=== PATIENT | female | born 1935 | race American Indian/Alaskan Native ===

== ENCOUNTER 2018-07-20 10:09 | Inpatient (IN) | payer OTHER ==
[2018-07-20] MEDS ORDERED: NACL 0.9% 1000 ML 1,000 ML IV ONE ×2 (10:23→10:58)
[2018-07-20] MEDS ORDERED: PROTONIX IV ONE (10:26)
--- NOTE | 2018-07-20 11:09 | Emergency Department Report ---
HPI - General Chief Complaint: GI Bleed Time Seen by Provider: 07/20/18 10:22 - HPI HPI: Room 9 The patient is an 82-year-old female presenting with a chief complaint of dizziness and black stool. The patient states she was diagnosed with a DVT in her right lower extremity approximately one week ago. Patient states she was initially started on Lovenox and then switched over to Coumadin. The patient states she took her last Lovenox shot 2 days ago and she took her last dose of Coumadin yesterday. The patient states yesterday intermittent episodes of diaphoresis. Last night she felt as though she was going to pass out. This morning patient states she didn't have diaphoresis and then had to have a bowel movement. Patient states she had black stool and then black emesis. Location: gastrointestinal system Duration: [See above] Quality: [See above] Severity: Moderate Modifying factors: [see above] Context: [see above] Mode of transportation: [not driving] ED Past Medical Hx - Past Medical History Previous Medical History?: Yes Hx Diabetes: Yes (NIDDM) Hx Arthritis: Yes Additional medical history: DVTs. sciatica - Surgical History Past Surgical History?: No - Family History Family history: no significant - Social History Smoking Status: Current Every Day Smoker Substance Use Type: None ED Review of Systems ROS: Stated complaint: GI BLEED Other details as noted in HPI Constitutional: diaphoresis Eyes: denies: eye pain ENT: denies: throat pain Respiratory: no symptoms reported Cardiovascular: denies: chest pain Endocrine: no symptoms reported Gastrointestinal: abdominal pain, nausea, vomiting, hematemesis, melena Genitourinary: denies: dysuria Musculoskeletal: denies: back pain Neurological: denies: headache Physical Exam - Physical Exam Vital Signs: Vital Signs 07/20/18 10:53 Pulse Rate 107 H Respiratory 19 Rate O2 Sat by Pulse 100 Oximetry Physical Exam: GENERAL: The patient is well-developed well-nourished female lying on stretcher appearing to be in moderate discomfort. [] HEENT: Normocephalic. Atraumatic. Extraocular motions are intact. Patient has moist mucous membranes. NECK: Supple. Trachea midline CHEST/LUNGS: Clear to auscultation. There is no respiratory distress noted. HEART/CARDIOVASCULAR: Regular. There is no tachycardia. There is no gallop rub or murmur. ABDOMEN: Abdomen is soft, with diffuse discomfort to palpation. No rebound or guarding. Patient has normal bowel sounds. There is no abdominal distention. SKIN: There is no rash. There is no edema. There is no diaphoresis. NEURO: The patient is awake, alert, and oriented. The patient is cooperative. The patient has normal speech MUSCULOSKELETAL: There is no evidence of acute injury. RECTAL: Melena. Guaiac positive ED Course Vital Signs 07/20/18 10:53 Pulse Rate 107 H Respiratory 19 Rate O2 Sat by Pulse 100 Oximetry - Consultations Consultation #1: 07/20/18 11:04 GI paged 07/20/18 11:16 Case discussed with Nona ED Medical Decision Making - Lab Data Result diagrams: 07/20/18 11:12 07/20/18 11:12 Laboratory Tests 07/20/18 07/20/18 07/20/18 11:09 11:12 11:12 WBC 17.5 H RBC 3.07 L Hgb 9.6 L Hct 29.3 L MCV 95 MCH 31 MCHC 33 RDW 15.3 H Plt Count 172 Lymph % (Auto) 19.4 [place] % (Auto) 4.0 Eos % (Auto) 0.1 Baso % (Auto) 0.5 Lymph # 3.4 [place] # 0.7 Eos # 0.0 Baso # 0.1 Seg Neutrophils % 76.0 H Seg Neutrophils # 13.3 H PT 53.0 H INR 5.38 H* APTT 92.5 H* Sodium Potassium Chloride Carbon Dioxide Anion Gap BUN Creatinine Estimated GFR BUN/Creatinine Ratio Glucose Calcium Total Bilirubin AST ALT Alkaline Phosphatase Total Protein Albumin Albumin/Globulin Ratio Blood Type O POSITIVE Antibody Screen Negative 07/20/18 11:12 WBC RBC Hgb Hct MCV MCH MCHC RDW Plt Count Lymph % (Auto) [place] % (Auto) Eos % (Auto) Baso % (Auto) Lymph # [place] # Eos # Baso # Seg Neutrophils % Seg Neutrophils # PT INR APTT Sodium 146 H Potassium 3.7 Chloride 108.7 H Carbon Dioxide 22 Anion Gap 19 BUN 43 H Creatinine 0.7 Estimated GFR > 60 BUN/Creatinine Ratio 61 Glucose 194 H Calcium 8.6 Total Bilirubin < 0.20 AST 29 ALT 24 Alkaline Phosphatase 61 Total Protein 5.8 L Albumin 2.9 L Albumin/Globulin Ratio 1.0 Blood Type Antibody Screen - Differential Diagnosis upper GI bleed, coagulopathy Critical Care Time: Yes Critical care time in (mins) excluding proc time.: 30 Critical care attestation.: If time is entered above; I have spent that time in minutes in the direct care of this critically ill patient, excluding procedure time. ED Disposition Clinical Impression: GI bleed Disposition: OP ADMIT IP TO THIS HOSP Is pt being admited?: Yes Does the pt Need Aspirin: No Condition: Serious Referrals: KAI YEH MD [Primary Care Provider] - 3-5 Days Forms: Accompanied Note Time of Disposition: 12:21 (hospitalist paged (Dr Lea))
[2018-07-20 11:30] LABS: Basophils # (Auto) 0.1 K/mm3 (0.0-0.1); Basophils % (Auto) 0.5 % (0.0-1.8); Eosinophils % (Auto) 0.1 % (0.0-4.3); Hematocrit 29.3 % (30.3-42.9); Hemoglobin 9.6 gm/dl (10.1-14.3); Lymphocytes # (Auto) 3.4 K/mm3 (1.2-5.4); Lymphocytes % (Auto) 19.4 % (13.4-35.0); Mean Corpuscular HGB Conc 33 % (30-34); Mean Corpuscular Volume 95 fl (79-97); Monocytes # (Auto) 0.7 K/mm3 (0.0-0.8); Platelet Count 172 K/mm3 (140-440); Red Blood Count 3.07 M/mm3 (3.65-5.03); Red Cell Distribution Width 15.3 % (13.2-15.2)
[2018-07-20 11:47] LABS: INR 5.38 (0.87-1.13); Partial Thromboplastin Time 92.5 Sec. (24.2-36.6)
[2018-07-20 11:55] LABS: Alanine Aminotransferase 24 units/L (7-56); Albumin 2.9 g/dL (3.9-5); BUN/Creatinine Ratio 61; Blood Urea Nitrogen 43 mg/dL (7-17); Calcium 8.6 mg/dL (8.4-10.2); Hemolysis Index 24
[2018-07-20] MEDS: PROTONIX 80 MG in NACL 0.9% 100 ML IV SCH ×2 (12:04→22:05)
--- NOTE | 2018-07-20 12:54 | Gastroenterology Consultation ---
<MARCO MO - Last Filed: 07/20/18 13:09> History of Present Illness - Reason for Consult Consult date: 07/20/18 GI bleed Requesting physician: MERRICK PELLETIER - History of Present Illness Patient is a 82 y/o female with PMH of DM, arthritits, sciatica, and recent DVT in RLE (began anticoagulants last week; was initially on lovenox then switched to coumadin with last dose yesterday) who presented to ED with c/o dizziness, black stool, and coffee-ground emesis that began this am. GI has been consulted for GI bleed. This afternoon patient was resting on stretcher w/o acute distress (hypotension improved). She reports black stool and coffee-ground emesis x 4 episodes so far today. No hematemesis or hematochezia. [facility] and dizziness improved. Denies fever, CP, SOB, abd pain, diarrhea, or constipation. No NSAID use. No alcohol use or hx of liver disease. States she underwent a prior EGD last year at [facility] for epigastric pain that revealed an ulcer (stopped taking daily ASA at that time). Not taking PPI at home. Past History Past Medical History: arthritis, diabetes, DVT, other (sciatica, PUD) Past Surgical History: Other (EGD 2018 at [facility]) Social history: smoking. denies: alcohol abuse Medications and Allergies Allergies Allergy/AdvReac Type Severity Reaction Status Date / Time No Known Allergies Allergy Unverified 07/20/18 10:15 Home Medications Medication Instructions Recorded Confirmed Last Taken Type Baclofen [Lioresal] 10 mg PO QID PRN 07/20/18 07/20/18 Unknown History Beclomethasone Dipropionate [Qvar] 2 puff IH BID 07/20/18 07/20/18 Unknown History Duloxetine HCl [Cymbalta] 60 mg PO QDAY 07/20/18 07/20/18 Unknown History Gabapentin [Neurontin] 2 cap PO QAM&QHS 07/20/18 07/20/18 Unknown History Ipratropium/Albuter (Nf) 1 puff IH QID 07/20/18 07/20/18 Unknown History [Combivent (Nf)] Lisinopril/Hydrochlorothiazide 1 tab PO QDAY 07/20/18 07/20/18 Unknown History [Zestoretic 20-25 mg] Oxycodone HCl [oxyCODONE] 10 mg PO Q4-6H PRN 07/20/18 07/20/18 Unknown History Potassium Chloride [K-Dur] 10 meq PO QDAY 07/20/18 07/20/18 Unknown History Pravastatin [Pravachol] 80 mg PO QPM 07/20/18 07/20/18 Unknown History Warfarin [Coumadin] 5 mg PO QDAY 07/20/18 07/20/18 Unknown History metFORMIN [Glucophage] 500 mg PO QDAY 07/20/18 07/20/18 Unknown History Active Meds: Active Medications Pantoprazole Sodium 80 mg/ (Sodium Chloride) 100 mls @ 10 mls/hr IV DIRECT [facility] Last Admin: 07/20/18 12:04 Dose: 8 mg/hr, 10 mls/hr Documented by: medications reviewed/updated as required Review of Systems - Review of Systems All systems: negative Gastrointestinal: coffee ground emesis, melena Exam - Constitutional Vital Signs: Temp Pulse Resp BP Pulse Ox 97.6 F 101 H 19 108/48 94 07/20/18 11:53 07/20/18 11:45 07/20/18 11:45 07/20/18 11:45 07/20/18 11:45 General appearance: no acute distress - EENT Eyes: PERRL, EOM intact ENT: hearing intact - Respiratory Respiratory: bilateral: CTA - Cardiovascular Rhythm: other (tachycardia) - Gastrointestinal General gastrointestinal: Present: soft, non-tender, non-distended, normal bowel sounds - Neurologic Neurological: alert and oriented x3 - Labs CBC & Chem 7: 07/20/18 11:12 07/20/18 11:12 Lab Results: Laboratory Results - last 24 hr 07/20/18 07/20/18 07/20/18 11:09 11:12 11:12 WBC 17.5 H RBC 3.07 L Hgb 9.6 L Hct 29.3 L MCV 95 MCH 31 MCHC 33 RDW 15.3 H Plt Count 172 Lymph % (Auto) 19.4 [place] % (Auto) 4.0 Eos % (Auto) 0.1 Baso % (Auto) 0.5 Lymph # 3.4 [place] # 0.7 Eos # 0.0 Baso # 0.1 Seg Neutrophils % 76.0 H Seg Neutrophils # 13.3 H PT 53.0 H INR 5.38 H* APTT 92.5 H* Sodium Potassium Chloride Carbon Dioxide Anion Gap BUN Creatinine Estimated GFR BUN/Creatinine Ratio Glucose Calcium Total Bilirubin AST ALT Alkaline Phosphatase Total Protein Albumin Albumin/Globulin Ratio Blood Type O POSITIVE Antibody Screen Negative 07/20/18 11:12 WBC RBC Hgb Hct MCV MCH MCHC RDW Plt Count Lymph % (Auto) [place] % (Auto) Eos % (Auto) Baso % (Auto) Lymph # [place] # Eos # Baso # Seg Neutrophils % Seg Neutrophils # PT INR APTT Sodium 146 H Potassium 3.7 Chloride 108.7 H Carbon Dioxide 22 Anion Gap 19 BUN 43 H Creatinine 0.7 Estimated GFR > 60 BUN/Creatinine Ratio 61 Glucose 194 H Calcium 8.6 Total Bilirubin < 0.20 AST 29 ALT 24 Alkaline Phosphatase 61 Total Protein 5.8 L Albumin 2.9 L Albumin/Globulin Ratio 1.0 Blood Type Antibody Screen Assessment and Plan 1.UGIB 2.melena 3.coffee-ground emesis 4.H/o PUD 5.RLE DVT (started anticoagulants last week; initially on lovenox then switched to coumadin) -BUN 43 -LFTs WNL -INR 5.38-FFP transfusion pending -H/H 9.6/29.3 -continue to monitor H/H and transfuse as needed -patient reports melena and coffee-ground emesis x 4 episodes today. No hematemesis or hematochezia. Denies abd pain. N/V improved. -last EGD 2018 at [facility] revealed ulcer per pt report -currently HD stable (hypotension improved) -etiology-likely PUD vs other -EGD once INR is <2 -Keep NPO for now -continue protonix drip -hold blood thinning medications (coumadin on hold) -continue supportive care -will follow <AMBER MARCH - Last Filed: 07/20/18 14:29> Medications and Allergies Active Meds: Active Medications Albuterol (Proventil) 2.5 mg IH Q3HRT PRN PRN Reason: Shortness Of Breath Duloxetine HCl (Cymbalta) 60 mg PO QDAY [facility] Gabapentin (Neurontin) 600 mg PO BID [facility] Last Admin: 07/20/18 14:03 Dose: 600 mg Documented by: Hydrochlorothiazide (Hctz) 25 mg PO QDAY [facility] Pantoprazole Sodium 80 mg/ (Sodium Chloride) 100 mls @ 10 mls/hr IV DIRECT [facility] Last Admin: 07/20/18 12:04 Dose: 8 mg/hr, 10 mls/hr Documented by: Sodium Chloride (Nacl 0.9% 500 Ml) 500 mls @ 0 mls/hr IV ONCE NR Stop: 07/20/18 23:59 Levofloxacin/Dextrose (Levaquin 500mg/100ml) 500 mg in 100 mls @ 100 mls/hr IV Q24HR [facility]; Protocol Stop: 07/22/18 14:59 Metronidazole (Flagyl 500 Mg/100 Ml) 500 mg in 100 mls @ 100 mls/hr IV Q8HR [facility]; Protocol Stop: 07/22/18 14:59 Lisinopril (Zestril) 20 mg PO QDAY [facility] Miscellaneous Medication (Beclomethasone Dipropionate [Qvar]) 2 puff IH BID [facility] Ondansetron HCl (Zofran) 4 mg IV Q8H PRN PRN Reason: Nausea And Vomiting Oxycodone HCl (Roxicodone) 10 mg PO Q4H PRN PRN Reason: Pain, Moderate (4-6) Last Admin: 07/20/18 14:02 Dose: 10 mg Documented by: Potassium Chloride (K-Dur) 10 meq PO QDAY [facility] Pravastatin Sodium (Pravachol) 80 mg PO QHS [facility] Sodium Chloride (Sodium Chloride Flush Syringe 10 Ml) 10 ml IV BID [facility] Sodium Chloride (Sodium Chloride Flush Syringe 10 Ml) 10 ml IV PRN PRN PRN Reason: LINE FLUSH Exam - Constitutional Vital Signs: Temp Pulse Resp BP Pulse Ox 97.6 F 91 H 21 110/65 100 07/20/18 11:53 07/20/18 13:00 07/20/18 13:00 07/20/18 13:00 07/20/18 13:00 - Labs CBC & Chem 7: 07/20/18 11:12 07/20/18 11:12 Lab Results: Laboratory Results - last 24 hr 07/20/18 07/20/18 07/20/18 11:09 11:12 11:12 WBC 17.5 H RBC 3.07 L Hgb 9.6 L Hct 29.3 L MCV 95 MCH 31 MCHC 33 RDW 15.3 H Plt Count 172 Lymph % (Auto) 19.4 [place] % (Auto) 4.0 Eos % (Auto) 0.1 Baso % (Auto) 0.5 Lymph # 3.4 [place] # 0.7 Eos # 0.0 Baso # 0.1 Seg Neutrophils % 76.0 H Seg Neutrophils # 13.3 H PT 53.0 H INR 5.38 H* APTT 92.5 H* Sodium Potassium Chloride Carbon Dioxide Anion Gap BUN Creatinine Estimated GFR BUN/Creatinine Ratio Glucose Calcium Total Bilirubin AST ALT Alkaline Phosphatase Total Protein Albumin Albumin/Globulin Ratio Blood Type O POSITIVE Antibody Screen Negative Crossmatch See Detail 07/20/18 11:12 WBC RBC Hgb Hct MCV MCH MCHC RDW Plt Count Lymph % (Auto) [place] % (Auto) Eos % (Auto) Baso % (Auto) Lymph # [place] # Eos # Baso # Seg Neutrophils % Seg Neutrophils # PT INR APTT Sodium 146 H Potassium 3.7 Chloride 108.7 H Carbon Dioxide 22 Anion Gap 19 BUN 43 H Creatinine 0.7 Estimated GFR > 60 BUN/Creatinine Ratio 61 Glucose 194 H Calcium 8.6 Total Bilirubin < 0.20 AST 29 ALT 24 Alkaline Phosphatase 61 Total Protein 5.8 L Albumin 2.9 L Albumin/Globulin Ratio 1.0 Blood Type Antibody Screen Crossmatch Assessment and Plan Pt seen and examined. Has had diaphoresis, unexplained, for last 2-3 days, but started to have melena and coffee ground emesis this AM, along with dizziness. INR > 5. Discussed with Hospitalist, and recommended monitoring in ICU. - agree with FFP and transfuse pRBC as needed - will do EGD in AM - may need to consider IVC filter placement.
[2018-07-20] MEDS ORDERED: NON-FORMULARY (Oxycodone Hcl [Oxycodone] 10 MG) PO PRN (13:25)
[2018-07-20] MEDS ORDERED: NACL 0.9% 500 ML 500 ML IV NR (13:26)
[2018-07-20] MEDS ORDERED: ZOFRAN IV PRN (13:27)
[2018-07-20] MEDS ORDERED: SODIUM CHLORIDE FLUSH SYRINGE 10 ML IV PRN (13:27)
--- NOTE | 2018-07-20 13:32 | History and Physical Report ---
History of Present Illness Chief complaint: I keep bleeding, and my back hurts History of present illness: 82 YO Female with DM, OA, LDD complicated by Sciatica, Nicotine Dependence, RLE DVT on Therapeutic Anticoagulation with Coumadin presents to ED for evaluation. Pt states that she has experienced 4 episodes of dark tarry stools this morning as well as coffee ground emesis. EMS notified and upon arrival the patient was found to be in distress and transported to [facility]. Pt seen and evaluated in ED and found to have GI Bleed complicated by blood loss anemia. Pt experienced large volume BRBPR while in ED. Pt Admitted to ICU and initiated on GI Bleeding protocol with PPI therapy and PRBC transfusion. GI consulted in ED. Pt denies fever, chills, CP, Palpitations, ingestion of food/water from new of different sources, or close contacts with similar symptoms, leg pain, calf pain, prolonged travel/immobility, flank pain, hematuria, dysuria, or recent ill contacts. Pt also reports pain in her lower back which is chronic, and currently rates at 4/10. No prior admission for review. Medication reconciled at time of admission. [facility] approved admission, but will call to discuss need for transfer versus continued care at [facility] with hospital physician tomorrow. Past History Past Medical History: arthritis, diabetes, DVT, other (sciatica, PUD) Past Surgical History: Other (EGD 2018 at [facility]) Social history: , smoking. denies: alcohol abuse Family history: diabetes, hypertension Medications and Allergies Allergies Allergy/AdvReac Type Severity Reaction Status Date / Time No Known Allergies Allergy Unverified 07/20/18 10:15 Home Medications Medication Instructions Recorded Confirmed Last Taken Type Baclofen [Lioresal] 10 mg PO QID PRN 07/20/18 07/20/18 Unknown History Beclomethasone Dipropionate [Qvar] 2 puff IH BID 07/20/18 07/20/18 Unknown History Duloxetine HCl [Cymbalta] 60 mg PO QDAY 07/20/18 07/20/18 Unknown History Gabapentin [Neurontin] 2 cap PO QAM&QHS 07/20/18 07/20/18 Unknown History Ipratropium/Albuter (Nf) 1 puff IH QID 07/20/18 07/20/18 Unknown History [Combivent (Nf)] Lisinopril/Hydrochlorothiazide 1 tab PO QDAY 07/20/18 07/20/18 Unknown History [Zestoretic 20-25 mg] Oxycodone HCl [oxyCODONE] 10 mg PO Q4-6H PRN 07/20/18 07/20/18 Unknown History Potassium Chloride [K-Dur] 10 meq PO QDAY 07/20/18 07/20/18 Unknown History Pravastatin [Pravachol] 80 mg PO QPM 07/20/18 07/20/18 Unknown History Warfarin [Coumadin] 5 mg PO QDAY 07/20/18 07/20/18 Unknown History metFORMIN [Glucophage] 500 mg PO QDAY 07/20/18 07/20/18 Unknown History Active Meds: Active Medications Albuterol (Proventil) 2.5 mg IH Q3HRT PRN PRN Reason: Shortness Of Breath Gabapentin (Neurontin) mg PO QAM&QHS [facility] Pantoprazole Sodium 80 mg/ (Sodium Chloride) 100 mls @ 10 mls/hr IV DIRECT [facility] Last Admin: 07/20/18 12:04 Dose: 8 mg/hr, 10 mls/hr Documented by: Sodium Chloride (Nacl 0.9% 500 Ml) 500 mls @ 0 mls/hr IV ONCE ONE Stop: 07/20/18 13:27 Miscellaneous Medication (Beclomethasone Dipropionate [Qvar]) 2 puff IH BID [facility] Miscellaneous Medication (Duloxetine Hcl [Cymbalta]) 60 mg PO QDAY [facility] Miscellaneous Medication (Lisinopril/Hydrochlorothiazide [Zestoretic 20-25 Mg]) 1 tab PO QDAY [facility] Miscellaneous Medication (Oxycodone Hcl [Oxycodone]) 10 mg PO Q4-6H PRN PRN Reason: Pain Ondansetron HCl (Zofran) 4 mg IV Q8H PRN PRN Reason: Nausea And Vomiting Pantoprazole Sodium (Protonix) 40 mg IV BID [facility] Potassium Chloride (K-Dur) 10 meq PO QDAY [facility] Pravastatin Sodium (Pravachol) 80 mg PO QPM [facility] Sodium Chloride (Sodium Chloride Flush Syringe 10 Ml) 10 ml IV BID [facility] Sodium Chloride (Sodium Chloride Flush Syringe 10 Ml) 10 ml IV PRN PRN PRN Reason: LINE FLUSH Review of Systems Constitutional: no weight loss, no weight gain, no fever, no chills Ears, nose, mouth and throat: no ear pain, no ear discharge, no tinnitis, no decreased hearing, no nose pain Breasts: no change in shape, no swelling, no mass Cardiovascular: no chest pain, no orthopnea, no palpitations, no rapid/irregular heart beat, no edema Respiratory: no cough, no cough with sputum, no excessive sputum, no hemoptysis Gastrointestinal: no nausea, no vomiting, no diarrhea, no constipation Genitourinary Female: no pelvic pain, no flank pain, no menorrhagia, no dysuria, no urinary frequency Exam - Constitutional Vitals: Temp Pulse Resp BP Pulse Ox 97.6 F 91 H 21 110/65 100 07/20/18 11:53 07/20/18 13:00 07/20/18 13:00 07/20/18 13:00 07/20/18 13:00 General appearance: Present: mild distress - EENT Eyes: Present: PERRL ENT: hearing intact, clear oral mucosa - Neck Neck: Present: supple, normal ROM - Respiratory Respiratory effort: normal Respiratory: bilateral: CTA - Cardiovascular Heart Sounds: Present: S1 & S2. Absent: rub, click - Extremities Extremities: pulses symmetrical, No edema Peripheral Pulses: within normal limits - Abdominal General gastrointestinal: Present: soft, non-tender, non-distended, normal bowel sounds Female genitourinary: Present: normal - Integumentary Integumentary: Present: clear, warm, dry - Musculoskeletal Musculoskeletal: gait normal, strength equal bilaterally - Psychiatric Psychiatric: appropriate mood/affect, intact judgment & insight - Neurologic Neurologic: CNII-XII intact, moves all extremities Results - Labs CBC & Chem 7: 07/20/18 11:12 07/20/18 11:12 Labs: Abnormal lab results 07/20/18 07/20/18 07/20/18 Range/Units 11:09 11:12 11:12 WBC 17.5 H (4.5-11.0) K/mm3 RBC 3.07 L (3.65-5.03) M/mm3 Hgb 9.6 L (10.1-14.3) gm/dl Hct 29.3 L (30.3-42.9) % RDW 15.3 H (13.2-15.2) % Seg Neutrophils % 76.0 H (40.0-70.0) % Seg Neutrophils # 13.3 H (1.8-7.7) K/mm3 PT 53.0 H (12.2-14.9) Sec. INR 5.38 H* (0.87-1.13) APTT 92.5 H* (24.2-36.6) Sec. Sodium (137-145) mmol/L Chloride (98-107) mmol/L BUN (7-17) mg/dL Glucose (65-100) mg/dL Total Protein (6.3-8.2) g/dL Albumin (3.9-5) g/dL Crossmatch See Detail 07/20/18 Range/Units 11:12 WBC (4.5-11.0) K/mm3 RBC (3.65-5.03) M/mm3 Hgb (10.1-14.3) gm/dl Hct (30.3-42.9) % RDW (13.2-15.2) % Seg Neutrophils % (40.0-70.0) % Seg Neutrophils # (1.8-7.7) K/mm3 PT (12.2-14.9) Sec. INR (0.87-1.13) APTT (24.2-36.6) Sec. Sodium 146 H (137-145) mmol/L Chloride 108.7 H (98-107) mmol/L BUN 43 H (7-17) mg/dL Glucose 194 H (65-100) mg/dL Total Protein 5.8 L (6.3-8.2) g/dL Albumin 2.9 L (3.9-5) g/dL Crossmatch Assessment and Plan - Patient Problems (1) GI bleed Current Visit: Yes Status: Acute Qualifiers: GI bleed type/associated pathology: anorectal hemorrhage Qualified Code(s): K62.5 - Hemorrhage of anus and rectum Plan to address problem: Admit to ICU, PPI therapy, FFP transfusion, serial CBC, GI consulted, lactic acid level, CT Abdomen/Pelvis which is pending at time of admission, serial abdominal exam. The high probability of a clinically significant, sudden or life threatening deterioration of the [GI, Hematologic, neuro] system(s) required my full and direct attention, intervention and personal management. The aggregate critical care time was [65] minutes. This time is in addition to time spent performing reported procedures but includes the following: [x] Data Review and interpretation [x] Patient assessment and monitoring of vital signs [x] Documentation [x] Medication orders and management (2) Blood loss anemia Current Visit: Yes Status: Acute Plan to address problem: PRBC Transfusion, serial CBC (3) SIRS (systemic inflammatory response syndrome) Current Visit: Yes Status: Acute Plan to address problem: CBC, empiric antibiotic therapy, CBC, urinalysis, CT Abdomen/Pelvis, (4) Hypernatremia Current Visit: Yes Status: Acute Plan to address problem: IVF resuscitation therpay, repeat bmp in am (5) Supratherapeutic INR Current Visit: Yes Status: Acute Plan to address problem: Hold therapeutic anticoagulation at this time, (6) DVT prophylaxis Current Visit: Yes Status: Acute Plan to address problem: SCD to BLE while in bed
--- NOTE | 2018-07-20 13:53 | XRay Report ---
AP CHEST :07/20/18 13:47 CLINICAL: Dyspnea. COMPARISON:None. FINDINGS: Normal heart and pulmonary vasculature. The lungs are normally expanded and clear except for mild prominence of interstitial markings. No airspace disease or pleural effusion. The bones and soft tissues are normal. IMPRESSION: Negative chest with no CHF or pneumonia.
[2018-07-20] MEDS: ROXICODONE PO PRN ×2 (14:02→18:57)
[2018-07-20] MEDS ORDERED: ROXICODONE ONE (14:02)
[2018-07-20] MEDS: NEURONTIN PO SCH ×2 (14:03→22:56)
[2018-07-20] MEDS ORDERED: NEURONTIN ONE (14:06)
[2018-07-20] MEDS ORDERED: LEVAQUIN 500MG/100ML 500 MG/100 ML BAG IV ONE (14:35)
[2018-07-20] MEDS ORDERED: FLAGYL 500 MG/100 ML 500 MG/100 ML BAG IV ONE (14:35)
[2018-07-20] MEDS: FLAGYL 500 MG/100 ML 500 MG/100 ML BAG IV SCH ×2 (14:37→22:55)
--- NOTE | 2018-07-20 15:10 | Consultation ---
History of Present Illness - Reason for Consult Consult date: 07/20/18 melena - History of Present Illness Patient with a history of leg pain recently diagnosed with DVT in her right leg. The patient was placed on Coumadin and bridged with Lovenox. Her INR is supratherapeutic. The patient presents with melena and coffee-ground emesis additionally, the patient continues to complain of bilateral leg pain, worse when walking. Patient has nonpalpable pedal pulses. Additionally, the patient complains of lower leg and calf swelling when on her feet for long periods of time. Past History Past Medical History: arthritis, diabetes, DVT, other (sciatica, PUD) Past Surgical History: Other (EGD 2018 at [facility]) Social history: , smoking. denies: alcohol abuse Family history: diabetes, hypertension Medications and Allergies Allergies Allergy/AdvReac Type Severity Reaction Status Date / Time No Known Allergies Allergy Unverified 07/20/18 10:15 Home Medications Medication Instructions Recorded Confirmed Last Taken Type Baclofen [Lioresal] 10 mg PO QID PRN 07/20/18 07/20/18 Unknown History Beclomethasone Dipropionate [Qvar] 2 puff IH BID 07/20/18 07/20/18 Unknown History Duloxetine HCl [Cymbalta] 60 mg PO QDAY 07/20/18 07/20/18 Unknown History Gabapentin [Neurontin] 2 cap PO QAM&QHS 07/20/18 07/20/18 Unknown History Ipratropium/Albuter (Nf) 1 puff IH QID 07/20/18 07/20/18 Unknown History [Combivent (Nf)] Lisinopril/Hydrochlorothiazide 1 tab PO QDAY 07/20/18 07/20/18 Unknown History [Zestoretic 20-25 mg] Oxycodone HCl [oxyCODONE] 10 mg PO Q4-6H PRN 07/20/18 07/20/18 Unknown History Potassium Chloride [K-Dur] 10 meq PO QDAY 07/20/18 07/20/18 Unknown History Pravastatin [Pravachol] 80 mg PO QPM 07/20/18 07/20/18 Unknown History Warfarin [Coumadin] 5 mg PO QDAY 07/20/18 07/20/18 Unknown History metFORMIN [Glucophage] 500 mg PO QDAY 07/20/18 07/20/18 Unknown History Active Meds: Active Medications Albuterol (Proventil) 2.5 mg IH Q3HRT PRN PRN Reason: Shortness Of Breath Duloxetine HCl (Cymbalta) 60 mg PO QDAY [facility] Gabapentin (Neurontin) 600 mg PO BID [facility] Last Admin: 07/20/18 14:03 Dose: 600 mg Documented by: Hydrochlorothiazide (Hctz) 25 mg PO QDAY [facility] Pantoprazole Sodium 80 mg/ (Sodium Chloride) 100 mls @ 10 mls/hr IV DIRECT [facility] Last Admin: 07/20/18 12:04 Dose: 8 mg/hr, 10 mls/hr Documented by: Sodium Chloride (Nacl 0.9% 500 Ml) 500 mls @ 0 mls/hr IV ONCE NR Stop: 07/20/18 23:59 Levofloxacin/Dextrose (Levaquin 500mg/100ml) 500 mg in 100 mls @ 100 mls/hr IV Q24HR [facility]; Protocol Stop: 07/22/18 14:59 Metronidazole (Flagyl 500 Mg/100 Ml) 500 mg in 100 mls @ 100 mls/hr IV Q8HR [facility]; Protocol Stop: 07/22/18 14:59 Last Admin: 07/20/18 14:37 Dose: 100 mls/hr Documented by: Lisinopril (Zestril) 20 mg PO QDAY [facility] Miscellaneous Medication (Beclomethasone Dipropionate [Qvar]) 2 puff IH BID [facility] Ondansetron HCl (Zofran) 4 mg IV Q8H PRN PRN Reason: Nausea And Vomiting Oxycodone HCl (Roxicodone) 10 mg PO Q4H PRN PRN Reason: Pain, Moderate (4-6) Last Admin: 07/20/18 14:02 Dose: 10 mg Documented by: Potassium Chloride (K-Dur) 10 meq PO QDAY [facility] Pravastatin Sodium (Pravachol) 80 mg PO QHS [facility] Sodium Chloride (Sodium Chloride Flush Syringe 10 Ml) 10 ml IV BID [facility] Sodium Chloride (Sodium Chloride Flush Syringe 10 Ml) 10 ml IV PRN PRN PRN Reason: LINE FLUSH Review of Systems All systems: negative Exam - Constitutional Vitals: Temp Pulse Resp BP Pulse Ox 97.6 F 91 H 21 110/65 100 07/20/18 11:53 07/20/18 13:00 07/20/18 13:00 07/20/18 13:00 07/20/18 13:00 General appearance: Present: no acute distress - EENT Eyes: Present: EOM intact ENT: hearing intact - Neck Neck: Present: supple, normal ROM - Respiratory Respiratory effort: normal - Extremities Extremities: abnormal Extremity abnormal: pulses diminished - Abdominal General gastrointestinal: Present: deferred - Rectal Rectal Exam: deferred - Integumentary Integumentary: Present: clear - Psychiatric Psychiatric: appropriate mood/affect, cooperative Results - Labs CBC & Chem 7: 07/20/18 11:12 07/20/18 11:12 Labs: Abnormal lab results 07/20/18 07/20/18 07/20/18 Range/Units 11:09 11:12 11:12 WBC 17.5 H (4.5-11.0) K/mm3 RBC 3.07 L (3.65-5.03) M/mm3 Hgb 9.6 L (10.1-14.3) gm/dl Hct 29.3 L (30.3-42.9) % RDW 15.3 H (13.2-15.2) % Seg Neutrophils % 76.0 H (40.0-70.0) % Seg Neutrophils # 13.3 H (1.8-7.7) K/mm3 PT 53.0 H (12.2-14.9) Sec. INR 5.38 H* (0.87-1.13) APTT 92.5 H* (24.2-36.6) Sec. Sodium (137-145) mmol/L Chloride (98-107) mmol/L BUN (7-17) mg/dL Glucose (65-100) mg/dL Total Protein (6.3-8.2) g/dL Albumin (3.9-5) g/dL Crossmatch See Detail 07/20/18 Range/Units 11:12 WBC (4.5-11.0) K/mm3 RBC (3.65-5.03) M/mm3 Hgb (10.1-14.3) gm/dl Hct (30.3-42.9) % RDW (13.2-15.2) % Seg Neutrophils % (40.0-70.0) % Seg Neutrophils # (1.8-7.7) K/mm3 PT (12.2-14.9) Sec. INR (0.87-1.13) APTT (24.2-36.6) Sec. Sodium 146 H (137-145) mmol/L Chloride 108.7 H (98-107) mmol/L BUN 43 H (7-17) mg/dL Glucose 194 H (65-100) mg/dL Total Protein 5.8 L (6.3-8.2) g/dL Albumin 2.9 L (3.9-5) g/dL Crossmatch Assessment and Plan Well-developed melena and ground emesis with supratherapeutic INR. Currently being held and corrected. We will obtain a repeat venous ultrasound to evaluate her legs for DVT. Additionally, given the patient's symptoms of shortness of claudication, the patient was scheduled for an arterial ultrasound with ABIs. When the patient's INR becomes therapeutic, the patient will be a candidate for IVC filter if necessary.
[2018-07-20] MEDS: LEVAQUIN 500MG/100ML 500 MG/100 ML BAG IV SCH (15:45)
[2018-07-20 17:04] LABS: Bilirubin,Urine NEG (Negative); Blood,Urine MOD (Negative); Color,Urine Straw (Yellow); Protein,Urine <15 mg/dL mg/dL (Negative); Urobilinogen,Urine < 2.0 mg/dL (<2.0); WBC,Urine < 1.0 /HPF (0.0-6.0)
--- NOTE | 2018-07-20 17:09 | Cat Scan Report ---
PROCEDURE: CT abdomen and pelvis without and with contrast. TECHNIQUE: Computerized axial tomography of the abdomen and pelvis was performed before and after th e IV injection of 100 mL iodinated nonionic contrast. Automated exposure control, adjustment of mA an d/or kV according to patient size, or iterative reconstruction dose optimization techniques were util ized. CT DOSE LENGTH PRODUCT: 3861.6 mGycm HISTORY: Gastrointestinal bleed, abdominal pain. COMPARISONS: None. FINDINGS: The lung bases are clear. There are no pleural effusions. The heart size is normal. The liver, pancre as and spleen appear normal. Cholecystectomy clips are present. There is mild biliary dilatation. The adrenal glands are not enlarged. There are bilateral renal cysts. There is some contrast material wi thin the renal collecting systems on the noncontrast images. The patient must have received some cont rast prior to these images being obtained. The abdominal aorta has a normal caliber. There is atheros clerotic calcification in the abdominal aorta and iliac arteries. There is no retroperitoneal adenopa thy. The unopacified gastrointestinal tract is unremarkable. The appendix is not visualized. The blad todd appears normal. The uterus is been removed. The regional skeleton appears intact. There is severe osteoarthritis involving the facet joints at L4-5 and L5-S1. IMPRESSION: Previous cholecystectomy with mild biliary dilatation. Bilateral renal cysts. Previous h ysterectomy. No evidence of acute disease in the abdomen or pelvis. This document is electronically signed by David Orlando MD., July 20 2018 05:07:12 PM ET
[2018-07-20] MEDS ORDERED: TORADOL IV ONE (21:16)
[2018-07-20] MEDS ORDERED: BECLOMETHASONE DIPROPIONATE IH SCH (22:00)
[2018-07-20] MEDS ORDERED: PROTONIX IV SCH (22:00)
[2018-07-20] MEDS: PRAVACHOL PO SCH (22:56)
[2018-07-20] MEDS: SODIUM CHLORIDE FLUSH SYRINGE 10 ML IV SCH (22:56)
[2018-07-21] MEDS: ROXICODONE PO PRN ×4 (02:19→20:35)
[2018-07-21] MEDS ORDERED: TORADOL ONE (03:14)
[2018-07-21 05:06] LABS: Basophils % (Auto) 0.4 % (0.0-1.8); Eosinophils # (Auto) 0.2 K/mm3 (0.0-0.4); Eosinophils % (Auto) 2.3 % (0.0-4.3); Hematocrit 23.5 % (30.3-42.9); Hemoglobin 7.9 gm/dl (10.1-14.3); Lymphocytes # (Auto) 2.5 K/mm3 (1.2-5.4); Lymphocytes % (Auto) 31.3 % (13.4-35.0); Mean Corpuscular HGB Conc 33 % (30-34); Mean Corpuscular Volume 95 fl (79-97); Monocytes # (Auto) 0.6 K/mm3 (0.0-0.8); Monocytes % (Auto) 7.3 % (0.0-7.3); Platelet Count 148 K/mm3 (140-440); Red Blood Count 2.47 M/mm3 (3.65-5.03); Red Cell Distribution Width 15.5 % (13.2-15.2)
[2018-07-21 05:15] LABS: INR 4.65 (0.87-1.13)
[2018-07-21] MEDS: FLAGYL 500 MG/100 ML 500 MG/100 ML BAG IV SCH ×3 (05:52→23:06)
[2018-07-21] MEDS: PROTONIX 80 MG in NACL 0.9% 100 ML IV SCH ×3 (05:53→20:44)
[2018-07-21] MEDS: TORADOL IV SCH ×4 (08:10→23:07)
[2018-07-21] MEDS: PULMICORT IH SCH ×2 (09:25→20:14)
[2018-07-21] MEDS: PROVENTIL IH PRN (09:25)
[2018-07-21] MEDS ORDERED: NACL 0.9% 500 ML 500 ML ONE (09:26)
[2018-07-21] MEDS ORDERED: NON-FORMULARY (Lisinopril/Hydrochlorothiazide [Zestoretic 20-25 Mg] 1 TAB) PO SCH (10:00)
[2018-07-21] MEDS ORDERED: NON-FORMULARY (Duloxetine Hcl [Cymbalta] 60 MG) PO SCH (10:00)
[2018-07-21] MEDS ORDERED: NACL 0.9% 1000 ML 1,000 ML IV SCH ×2 (10:00→14:00)
[2018-07-21] MEDS: NEURONTIN PO SCH ×3 (11:03→23:07)
[2018-07-21] MEDS: ZESTRIL PO SCH ×2 (11:03→23:03)
[2018-07-21] MEDS: K-DUR PO SCH ×2 (11:04→17:22)
[2018-07-21] MEDS: HCTZ PO SCH ×2 (11:04→17:22)
[2018-07-21] MEDS: CYMBALTA PO SCH ×2 (11:04→17:23)
[2018-07-21] MEDS: LEVAQUIN 500MG/100ML 500 MG/100 ML BAG IV SCH (11:05)
--- NOTE | 2018-07-21 11:22 | Consultation ---
History of Present Illness Consult date: 07/21/18 Requesting physician: STACEY BLANCHARD Reason for consult: other (GI bleeding, coumadin toxicity, Lower extremity DVT) History of present illness: 82 YO Female with DM, OA, LDD complicated by Sciatica, Nicotine Dependence, RLE DVT on Therapeutic Anticoagulation with Coumadin presents to ED for evaluation. Pt states that she has experienced 4 episodes of dark tarry stools this morning as well as coffee ground emesis. EMS notified and upon arrival the patient was found to be in distress and transported to [facility]. Pt seen and evaluated in ED and found to have GI Bleed complicated by blood loss anemia. Pt experienced large volume BRBPR while in ED. Pt Admitted to ICU and initiated on GI Bleeding protocol with PPI therapy and PRBC transfusion. GI consulted in ED. Pt denies fever, chills, CP, Palpitations, ingestion of food/water from new of different sources, or close contacts with similar symptoms, leg pain, calf pain, prolonged travel/immobility, flank pain, hematuria, dysuria, or recent ill contacts. Pt also reports pain in her lower back which is chronic, and currently rates at 4/10. No prior admission for review. I have arun consulted for critical care management. Patient was seen and examined. Vitals, labs,medications, chart and imaging reviewed. States she has back pain and pain form her DVT. Currently NPO for EGD today. No further melanotic stools. Past History Past Medical History: arthritis, diabetes, DVT, other (sciatica, PUD) Past Surgical History: Other (EGD 2018 at [facility]) Social history: , smoking. denies: alcohol abuse Family history: diabetes, hypertension Medications and Allergies Allergies Allergy/AdvReac Type Severity Reaction Status Date / Time No Known Allergies Allergy Unverified 07/20/18 10:15 Home Medications Medication Instructions Recorded Confirmed Last Taken Type Baclofen [Lioresal] 10 mg PO QID PRN 07/20/18 07/20/18 Unknown History Beclomethasone Dipropionate [Qvar] 2 puff IH BID 07/20/18 07/20/18 Unknown History Duloxetine HCl [Cymbalta] 60 mg PO QDAY 07/20/18 07/20/18 Unknown History Gabapentin [Neurontin] 2 cap PO QAM&QHS 07/20/18 07/20/18 Unknown History Ipratropium/Albuter (Nf) 1 puff IH QID 07/20/18 07/20/18 Unknown History [Combivent (Nf)] Lisinopril/Hydrochlorothiazide 1 tab PO QDAY 07/20/18 07/20/18 Unknown History [Zestoretic 20-25 mg] Oxycodone HCl [oxyCODONE] 10 mg PO Q4-6H PRN 07/20/18 07/20/18 Unknown History Potassium Chloride [K-Dur] 10 meq PO QDAY 07/20/18 07/20/18 Unknown History Pravastatin [Pravachol] 80 mg PO QPM 07/20/18 07/20/18 Unknown History Warfarin [Coumadin] 5 mg PO QDAY 07/20/18 07/20/18 Unknown History metFORMIN [Glucophage] 500 mg PO QDAY 07/20/18 07/20/18 Unknown History Active Meds: Active Medications Albuterol (Proventil) 2.5 mg IH Q3HRT PRN PRN Reason: Shortness Of Breath Last Admin: 07/21/18 09:25 Dose: 2.5 mg Documented by: Budesonide (Pulmicort) 0.5 mg IH Q12HRT [facility] Last Admin: 07/21/18 09:25 Dose: 0.5 mg Documented by: Duloxetine HCl (Cymbalta) 60 mg PO QDAY [facility] Last Admin: 07/21/18 11:04 Dose: 60 mg Documented by: Gabapentin (Neurontin) 600 mg PO BID [facility] Last Admin: 07/21/18 11:03 Dose: 600 mg Documented by: Hydrochlorothiazide (Hctz) 25 mg PO QDAY [facility] Last Admin: 07/21/18 11:04 Dose: 25 mg Documented by: Pantoprazole Sodium 80 mg/ (Sodium Chloride) 100 mls @ 10 mls/hr IV DIRECT [facility] Last Admin: 07/21/18 08:11 Dose: 8 mg/hr, 10 mls/hr Documented by: Levofloxacin/Dextrose (Levaquin 500mg/100ml) 500 mg in 100 mls @ 100 mls/hr IV Q24HR [facility]; Protocol Stop: 07/22/18 14:59 Last Admin: 07/21/18 11:05 Dose: 100 mls/hr Documented by: Metronidazole (Flagyl 500 Mg/100 Ml) 500 mg in 100 mls @ 100 mls/hr IV Q8HR [facility]; Protocol Stop: 07/22/18 14:59 Last Admin: 07/21/18 05:52 Dose: 100 mls/hr Documented by: Sodium Chloride (Nacl 0.9% 1000 Ml) 1,000 mls @ 50 mls/hr IV DIRECT [facility] Sodium Chloride (Nacl 0.9% 500 Ml) 500 mls @ 0 mls/hr IV ONCE ONE Stop: 07/21/18 12:01 Ketorolac Tromethamine (Toradol) 30 mg IV Q6HR [facility] Stop: 07/26/18 05:59 Last Admin: 07/21/18 08:10 Dose: 30 mg Documented by: Lisinopril (Zestril) 20 mg PO QDAY [facility] Last Admin: 07/21/18 11:03 Dose: 20 mg Documented by: Morphine Sulfate (Morphine) 1 mg IV ONCE ONE Stop: 07/21/18 12:01 Ondansetron HCl (Zofran) 4 mg IV Q8H PRN PRN Reason: Nausea And Vomiting Oxycodone HCl (Roxicodone) 10 mg PO Q4H PRN PRN Reason: Pain, Moderate (4-6) Last Admin: 07/21/18 07:28 Dose: 10 mg Documented by: Potassium Chloride (K-Dur) 10 meq PO QDAY [facility] Last Admin: 07/21/18 11:04 Dose: 10 meq Documented by: Pravastatin Sodium (Pravachol) 80 mg PO QHS [facility] Last Admin: 07/20/18 22:56 Dose: Not Given Documented by: Sodium Chloride (Sodium Chloride Flush Syringe 10 Ml) 10 ml IV BID [facility] Last Admin: 07/20/18 22:56 Dose: 10 ml Documented by: Sodium Chloride (Sodium Chloride Flush Syringe 10 Ml) 10 ml IV PRN PRN PRN Reason: LINE FLUSH Review of Systems Constitutional: no weight loss, no weight gain, no fever, no chills, no sweats Cardiovascular: no chest pain, no orthopnea, no palpitations, no rapid/irregular heart beat, no syncope, no lightheadedness, no shortness of breath Respiratory: no cough, no cough with sputum, no hemoptysis, no shortness of breath, no congestion, no wheezing Gastrointestinal: melena, no abdominal pain, no nausea, no vomiting, no diarrhea, no heartburn Musculoskeletal: low back pain, shooting leg pain, leg numbness/tingling, no neck pain Neurological: no transient paralysis, no paralysis, no weakness, no parathesias, no syncope, no tremors Physical Examination Vital signs: Vital Signs Pulse Resp Pulse Ox 107 H 19 100 07/20/18 10:53 07/20/18 10:53 07/20/18 10:53 General appearance: alert, appears uncomfortable, other (in pain) Eyes: non-icteric ENT: oropharynx moist Neck: supple, no lymphadenopathy, no JVD Effort: normal Ascultation: Bilateral: clear, diminished breath sounds (at the lung bases) Cardiovascular: regular rate and rhythm, other (S1,S2, no murmurs, gallops or rubs) Gastrointestinal: normoactive bowel sounds, soft, non-tender, non-distended, other (no hepatosplenomegaly) Integumentary: normal Extremities: no cyanosis, no edema, pink and warm, pulses normal, no ischemia or petechiae Musculoskeletal: no deformities non-focal exam, pupils equal and round, CN II-XII normal, motor strength normal and mood appropriate, affect normal Results - Laboratory Findings CBC and BMP: 07/21/18 20:42 07/20/18 11:12 PT/INR, D-dimer PT 47.2 Sec. (12.2-14.9) H 07/21/18 04:28 INR 4.65 (0.87-1.13) H 07/21/18 04:28 Abnormal lab findings: Abnormal Labs 07/20/18 07/20/18 07/20/18 11:09 11:12 11:12 WBC 17.5 H RBC 3.07 L Hgb 9.6 L Hct 29.3 L RDW 15.3 H Seg Neutrophils % 76.0 H Seg Neutrophils # 13.3 H PT 53.0 H INR 5.38 H* APTT 92.5 H* Sodium Chloride BUN Glucose Lactic Acid Total Protein Albumin Crossmatch See Detail 07/20/18 07/20/18 07/21/18 11:12 14:49 04:28 WBC RBC 2.47 L Hgb 7.9 L Hct 23.5 L RDW 15.5 H Seg Neutrophils % Seg Neutrophils # PT INR APTT Sodium 146 H Chloride 108.7 H BUN 43 H Glucose 194 H Lactic Acid 3.10 H* Total Protein 5.8 L Albumin 2.9 L Crossmatch 07/21/18 04:28 WBC RBC Hgb Hct RDW Seg Neutrophils % Seg Neutrophils # PT 47.2 H INR 4.65 H APTT Sodium Chloride BUN Glucose Lactic Acid Total Protein Albumin Crossmatch - Diagnostic Findings Chest x-ray: report reviewed, image reviewed (No acute pulmonary infiltrates) Assessment and Plan -Acute GIB, with anemia -Coagulopathy, with coumadin toxicity -Supratherapeutic INR -h/o Peptic ulcer disease, s/p EGD -RLE DVT -Hypernatremia -Uremia, secondary to GI bleed -Chronic pain, back pain -h/o Tobacco use disorder -Keep NPO -Supportive transfusions, keep HgB >7g/dL -Serial H and H -Monitor hemodynamics closely -Stop toradol -Hypotonic solution for hypernatremia -Transfuse FFP for coumadin reversal -Await lower extremity dopplers r/o VTE -EGD pending -Therapeutic PPI -Analgesia -Smoking cessation counselling -Nicotine withdrawal precautions It is not clear why she developed the VTE, provoked or unprovoked. Needs age appropriate cancer screening to ensure that the DVT is not a harbinger of occult malignancy Discussed extensively in ICU-IDT rounds. Patient is to be monitored in the ICU until her EGD is done. CONDITION: CRITICAL PROGNOSIS: FAIR-GUARDED CODE STATUS: FULL CODE The high probability of a clinically significant, sudden or life-threatening deterioration of the [GI and hematology] system(s) required my full and direct attention, intervention and personal management. The aggregate critical care time was [65] minutes without overlap. Time includes spent on; [x] Data Review and interpretation [x] Patient assessment and monitoring of vital signs [x] Documentation [x] Medication orders and management
[2018-07-21] MEDS ORDERED: NACL 0.9% 500 ML 500 ML IV ONE ×2 (12:00→20:02)
[2018-07-21] MEDS ORDERED: MORPHINE IV ONE (12:00)
[2018-07-21 12:02] LABS: INR 2.62 (0.87-1.13)
[2018-07-21] MEDS ORDERED: WATER FOR IRRIG STERILE IR ONE (13:27)
[2018-07-21] MEDS ORDERED: VITAMIN K (ADULT ONLY) 10 MG in NACL 0.9% 50 ML IV ONE (13:29)
[2018-07-21] MEDS ORDERED: DIPRIVAN 10 MG/ML IV ONE (13:30)
--- NOTE | 2018-07-21 13:57 | Progress Note ---
Assessment and Plan 82-year-old female with right lower extremity DVT and GI bleed with her therapeutic anticoagulation. Awaiting EGD determine lesion risk profile. Awaiting ultrasound to determine extent of thrombus. Can make recommendations once this is completed. May need IVC filter. Subjective Date of service: 07/21/18 Interval history: Awaiting US to be performed. Awaiting EGD. Still with elevated INR. Describes sciatica (pain from hip radiation posterior to right foot). Describes joint pain. Describes some achiness in the calf. Palpable right DP, and left DP. BP better at time of exam. Objective - Constitutional Vitals: Vital Signs - 12hr 07/21/18 07/21/18 07/21/18 02:48 02:59 03:00 Temperature Pulse Rate 89 96 H 94 H Pulse Rate [ Anterior Bilateral Throughout] Pulse Rate [ Right Posterior Tibial] Respiratory 13 22 14 Rate Respiratory Rate [Anterior Bilateral Throughout] Blood Pressure 88/44 O2 Sat by Pulse 95 96 96 Oximetry 07/21/18 07/21/18 07/21/18 03:11 03:21 03:31 Temperature Pulse Rate 93 H 85 90 Pulse Rate [ Anterior Bilateral Throughout] Pulse Rate [ Right Posterior Tibial] Respiratory 15 13 12 Rate Respiratory Rate [Anterior Bilateral Throughout] Blood Pressure 88/44 96/54 96/54 O2 Sat by Pulse 93 97 94 Oximetry 07/21/18 07/21/18 07/21/18 03:41 03:51 04:00 Temperature 98.6 F Pulse Rate 94 H 88 88 Pulse Rate [ Anterior Bilateral Throughout] Pulse Rate [ Right Posterior Tibial] Respiratory 13 15 13 Rate Respiratory Rate [Anterior Bilateral Throughout] Blood Pressure 96/54 96/54 95/59 O2 Sat by Pulse 97 95 96 Oximetry 07/21/18 07/21/18 07/21/18 04:11 04:21 04:31 Temperature Pulse Rate 95 H 90 88 Pulse Rate [ Anterior Bilateral Throughout] Pulse Rate [ Right Posterior Tibial] Respiratory 16 16 16 Rate Respiratory Rate [Anterior Bilateral Throughout] Blood Pressure 95/59 95/59 95/59 O2 Sat by Pulse 95 96 98 Oximetry 07/21/18 07/21/18 07/21/18 04:41 04:51 05:00 Temperature Pulse Rate 85 88 85 Pulse Rate [ Anterior Bilateral Throughout] Pulse Rate [ Right Posterior Tibial] Respiratory 14 16 15 Rate Respiratory Rate [Anterior Bilateral Throughout] Blood Pressure 95/59 95/59 102/60 O2 Sat by Pulse 97 96 97 Oximetry 07/21/18 07/21/18 07/21/18 05:11 05:21 05:30 Temperature Pulse Rate 86 88 83 Pulse Rate [ Anterior Bilateral Throughout] Pulse Rate [ Right Posterior Tibial] Respiratory 16 13 15 Rate Respiratory Rate [Anterior Bilateral Throughout] Blood Pressure 102/60 102/60 102/60 O2 Sat by Pulse 97 98 94 Oximetry 07/21/18 07/21/18 07/21/18 05:41 05:51 06:00 Temperature Pulse Rate 87 86 87 Pulse Rate [ Anterior Bilateral Throughout] Pulse Rate [ Right Posterior Tibial] Respiratory 30 H 20 23 Rate Respiratory Rate [Anterior Bilateral Throughout] Blood Pressure 102/60 102/60 104/55 O2 Sat by Pulse 95 94 95 Oximetry 07/21/18 07/21/18 07/21/18 06:11 06:21 06:31 Temperature Pulse Rate 92 H 86 78 Pulse Rate [ Anterior Bilateral Throughout] Pulse Rate [ Right Posterior Tibial] Respiratory 15 12 12 Rate Respiratory Rate [Anterior Bilateral Throughout] Blood Pressure 104/55 104/55 104/55 O2 Sat by Pulse 99 97 98 Oximetry 07/21/18 07/21/18 07/21/18 06:41 06:51 07:00 Temperature Pulse Rate 98 H 84 82 Pulse Rate [ Anterior Bilateral Throughout] Pulse Rate [ Right Posterior Tibial] Respiratory 17 12 12 Rate Respiratory Rate [Anterior Bilateral Throughout] Blood Pressure 104/55 104/55 99/57 O2 Sat by Pulse 100 95 97 Oximetry 07/21/18 07/21/18 07/21/18 07:11 07:21 07:31 Temperature Pulse Rate 81 90 90 Pulse Rate [ Anterior Bilateral Throughout] Pulse Rate [ Right Posterior Tibial] Respiratory 16 12 15 Rate Respiratory Rate [Anterior Bilateral Throughout] Blood Pressure 99/57 99/57 99/57 O2 Sat by Pulse 98 97 97 Oximetry 07/21/18 07/21/18 07/21/18 07:41 07:51 08:00 Temperature 98.1 F Pulse Rate 85 92 H Pulse Rate [ Anterior Bilateral Throughout] Pulse Rate [ 81 Right Posterior Tibial] Respiratory 11 L 26 H 15 Rate Respiratory Rate [Anterior Bilateral Throughout] Blood Pressure 99/57 99/57 O2 Sat by Pulse 96 96 Oximetry 07/21/18 07/21/18 07/21/18 08:01 08:23 09:25 Temperature Pulse Rate 85 84 Pulse Rate [ 89 Anterior Bilateral Throughout] Pulse Rate [ Right Posterior Tibial] Respiratory 13 17 Rate Respiratory 20 Rate [Anterior Bilateral Throughout] Blood Pressure 109/63 O2 Sat by Pulse 98 95 Oximetry 07/21/18 07/21/18 07/21/18 09:36 09:41 09:51 Temperature 97.3 F L 97.7 F Pulse Rate 83 80 Pulse Rate [ 87 Anterior Bilateral Throughout] Pulse Rate [ Right Posterior Tibial] Respiratory 14 15 Rate Respiratory 20 Rate [Anterior Bilateral Throughout] Blood Pressure 104/60 104/60 O2 Sat by Pulse 99 98 Oximetry 07/21/18 07/21/18 07/21/18 10:20 12:00 12:14 Temperature 98.3 F 98.5 F 98.2 F Pulse Rate 82 78 Pulse Rate [ Anterior Bilateral Throughout] Pulse Rate [ Right Posterior Tibial] Respiratory 15 15 Rate Respiratory Rate [Anterior Bilateral Throughout] Blood Pressure 106/58 92/45 O2 Sat by Pulse 95 97 Oximetry 07/21/18 07/21/18 07/21/18 12:18 12:33 13:03 Temperature 98.2 F 99.0 F 99.0 F Pulse Rate 79 98 H 98 H Pulse Rate [ Anterior Bilateral Throughout] Pulse Rate [ Right Posterior Tibial] Respiratory 11 L 15 20 Rate Respiratory Rate [Anterior Bilateral Throughout] Blood Pressure 92/45 112/58 112/58 O2 Sat by Pulse 95 96 98 Oximetry General appearance: Present: no acute distress - EENT Eyes: EOM intact ENT: hearing intact - Respiratory Respiratory effort: normal Extremities: normal temperature, normal color - Psychiatric Psychiatric: appropriate mood/affect, cooperative - Labs CBC & Chem 7: 07/21/18 04:28 07/20/18 11:12 Labs: Abnormal lab results 07/20/18 07/20/18 07/21/18 Range/Units 11:09 14:49 04:28 RBC 2.47 L (3.65-5.03) M/mm3 Hgb 7.9 L (10.1-14.3) gm/dl Hct 23.5 L (30.3-42.9) % RDW 15.5 H (13.2-15.2) % PT (12.2-14.9) Sec. INR (0.87-1.13) Lactic Acid 3.10 H* (0.7-2.0) mmol/L Crossmatch See Detail 07/21/18 07/21/18 Range/Units 04:28 11:11 RBC (3.65-5.03) M/mm3 Hgb (10.1-14.3) gm/dl Hct (30.3-42.9) % RDW (13.2-15.2) % PT 47.2 H 29.8 H (12.2-14.9) Sec. INR 4.65 H 2.62 H (0.87-1.13) Lactic Acid (0.7-2.0) mmol/L Crossmatch Medications & Allergies - Medications Allergies/Adverse Reactions: Allergies No Known Allergies Allergy (Unverified 07/20/18 10:15) Home Medications: Home Medications Medication Instructions Recorded Confirmed Last Taken Type Baclofen [Lioresal] 10 mg PO QID PRN 07/20/18 07/20/18 Unknown History Beclomethasone Dipropionate [Qvar] 2 puff IH BID 07/20/18 07/20/18 Unknown History Duloxetine HCl [Cymbalta] 60 mg PO QDAY 07/20/18 07/20/18 Unknown History Gabapentin [Neurontin] 2 cap PO QAM&QHS 07/20/18 07/20/18 Unknown History Ipratropium/Albuter (Nf) 1 puff IH QID 07/20/18 07/20/18 Unknown History [Combivent (Nf)] Lisinopril/Hydrochlorothiazide 1 tab PO QDAY 07/20/18 07/20/18 Unknown History [Zestoretic 20-25 mg] Oxycodone HCl [oxyCODONE] 10 mg PO Q4-6H PRN 07/20/18 07/20/18 Unknown History Potassium Chloride [K-Dur] 10 meq PO QDAY 07/20/18 07/20/18 Unknown History Pravastatin [Pravachol] 80 mg PO QPM 07/20/18 07/20/18 Unknown History Warfarin [Coumadin] 5 mg PO QDAY 07/20/18 07/20/18 Unknown History metFORMIN [Glucophage] 500 mg PO QDAY 07/20/18 07/20/18 Unknown History Active Medications: Generic Name Dose Route Start Last Admin Trade Name Freq PRN Reason Stop Dose Admin Albuterol 2.5 mg 07/20/18 13:27 07/21/18 09:25 Proventil IH 2.5 mg Q3HRT PRN Administration Shortness Of Breath Budesonide 0.5 mg 07/21/18 08:00 07/21/18 09:25 Pulmicort IH 0.5 mg Q12HRT LUCIEN Administration Duloxetine HCl 60 mg 07/21/18 10:00 Cymbalta PO QDAY LUCIEN Gabapentin 600 mg 07/20/18 14:00 07/20/18 22:56 Neurontin PO Not Given BID LUCIEN Hydrochlorothiazide 25 mg 07/21/18 10:00 Hctz PO QDAY LUCIEN Pantoprazole Sodium 80 mg/ 100 mls @ 10 mls/hr 07/20/18 11:00 07/21/18 08:11 Sodium Chloride IV 8 mg/hr DIRECT LUCIEN 10 mls/hr Administration 8 MG/HR Levofloxacin/Dextrose 500 mg in 100 mls @ 100 mls/hr 07/20/18 15:00 07/21/18 11:05 Levaquin 500mg/100ml IV 07/22/18 14:59 100 mls/hr Q24HR LUCIEN Administration Protocol Metronidazole 500 mg in 100 mls @ 100 mls/hr 07/20/18 15:00 07/21/18 05:52 Flagyl 500 Mg/100 Ml IV 07/22/18 14:59 100 mls/hr Q8HR LUCIEN Administration Protocol Sodium Chloride 1,000 mls @ 50 mls/hr 07/21/18 10:00 Nacl 0.9% 1000 Ml IV DIRECT LUCIEN Sodium Chloride 1,000 mls @ 50 mls/hr 07/21/18 14:00 Nacl 0.9% 1000 Ml IV DIRECT LUCIEN Phytonadione 10 mg/ Sodium 51 mls @ 100 mls/hr 07/21/18 13:29 Chloride IV 07/21/18 13:59 ONCE ONE Ketorolac Tromethamine 30 mg 07/21/18 06:00 07/21/18 13:16 Toradol IV 07/26/18 05:59 30 mg Q6HR LUCIEN Administration Lisinopril 20 mg 07/21/18 10:00 07/21/18 11:03 Zestril PO 20 mg QDAY LUCIEN Administration Ondansetron HCl 4 mg 07/20/18 13:27 Zofran IV Q8H PRN Nausea And Vomiting Oxycodone HCl 10 mg 07/20/18 13:40 07/21/18 07:28 Roxicodone PO 10 mg Q4H PRN Administration Pain, Moderate (4-6) Potassium Chloride 10 meq 07/21/18 10:00 K-Dur PO QDAY LUCIEN Pravastatin Sodium 80 mg 07/20/18 22:00 07/20/18 22:56 Pravachol PO Not Given QHS LUCIEN Sodium Chloride 10 ml 07/20/18 22:00 07/20/18 22:56 Sodium Chloride Flush Syringe 10 Ml IV 10 ml BID LUCIEN Administration Sodium Chloride 10 ml 07/20/18 13:27 Sodium Chloride Flush Syringe 10 Ml IV PRN PRN LINE FLUSH
--- NOTE | 2018-07-21 16:13 | Post Operative Note ---
Pre-op diagnosis: Melena/CGE Post-op diagnosis: other (Antral ulcers, no active bleed) Findings: 1. 3 white-based antral ulcers, upto 1 cm in size, with surrounding edema, and no stigmata of bleeding. 2. Otherwise normal EGD Procedure: EGD Anesthesia: MAC Surgeon: AMBER MARCH Estimated blood loss: none Pathology: none Condition: stable Disposition: ICU (Clears today, and adv diet tomorrow. If H/H stable, may resume anticoagulation in 48 hrs.)
--- NOTE | 2018-07-21 16:39 | Progress Note ---
Assessment and Plan (1) GI bleed Current Visit: Yes Status: Acute Qualifiers: GI bleed type/associated pathology: anorectal hemorrhage Qualified Code(s): K62.5 - Hemorrhage of anus and rectum Plan to address problem: 1. 3 white-based antral ulcers, upto 1 cm in size, with surrounding edema, and no stigmata of bleeding. 2. Otherwise normal EGD Cont protonix drip (2) Blood loss anemia Current Visit: Yes Status: Acute Plan to address problem: H/h 6.7/20.2 Transfuse 1 to 2 units of PRBC (3) SIRS (systemic inflammatory response syndrome) Current Visit: Yes Status: Acute Plan to address problem: CBC, empiric antibiotic therapy, CBC, urinalysis, CT Abdomen/Pelvis, (4) Hypernatremia Current Visit: Yes Status: Acute Plan to address problem: Improved (5) Supratherapeutic INR Current Visit: Yes Status: Acute Plan to address problem: Hold therapeutic anticoagulation at this time, INR dereased to 2.62 To resume anticoagulation after 48 hours (6) DVT prophylaxis Current Visit: Yes Status: Acute Plan to address problem: SCD to BLE while in bed Start anticoagulation after 2 days on July 23-D/w GI Dr Walter The high probability of a clinically significant, sudden or life threatening deterioration of the [GI, Hematologic, neuro] system(s) required my full and direct attention, intervention and personal management. The aggregate critical care time was [65] minutes. This time is in addition to time spent performing reported procedures but includes the following: [x] Data Review and interpretation [x] Patient assessment and monitoring of vital signs [x] Documentation [x] Medication orders and management Subjective Date of service: 07/21/18 Principal diagnosis: Upper GI Bleed Interval history: Had EGD today--3 gastric ulcers on EGD Objective - Constitutional Vitals: Vital Signs - 12hr 07/21/18 07/21/18 07/21/18 04:41 04:51 05:00 Temperature Pulse Rate 85 88 85 Pulse Rate [ Anterior Bilateral Throughout] Pulse Rate [ Right Posterior Tibial] Respiratory 14 16 15 Rate Respiratory Rate [Anterior Bilateral Throughout] Blood Pressure 95/59 95/59 102/60 O2 Sat by Pulse 97 96 97 Oximetry 07/21/18 07/21/18 07/21/18 05:11 05:21 05:30 Temperature Pulse Rate 86 88 83 Pulse Rate [ Anterior Bilateral Throughout] Pulse Rate [ Right Posterior Tibial] Respiratory 16 13 15 Rate Respiratory Rate [Anterior Bilateral Throughout] Blood Pressure 102/60 102/60 102/60 O2 Sat by Pulse 97 98 94 Oximetry 07/21/18 07/21/18 07/21/18 05:41 05:51 06:00 Temperature Pulse Rate 87 86 87 Pulse Rate [ Anterior Bilateral Throughout] Pulse Rate [ Right Posterior Tibial] Respiratory 30 H 20 23 Rate Respiratory Rate [Anterior Bilateral Throughout] Blood Pressure 102/60 102/60 104/55 O2 Sat by Pulse 95 94 95 Oximetry 07/21/18 07/21/18 07/21/18 06:11 06:21 06:31 Temperature Pulse Rate 92 H 86 78 Pulse Rate [ Anterior Bilateral Throughout] Pulse Rate [ Right Posterior Tibial] Respiratory 15 12 12 Rate Respiratory Rate [Anterior Bilateral Throughout] Blood Pressure 104/55 104/55 104/55 O2 Sat by Pulse 99 97 98 Oximetry 07/21/18 07/21/18 07/21/18 06:41 06:51 07:00 Temperature Pulse Rate 98 H 84 82 Pulse Rate [ Anterior Bilateral Throughout] Pulse Rate [ Right Posterior Tibial] Respiratory 17 12 12 Rate Respiratory Rate [Anterior Bilateral Throughout] Blood Pressure 104/55 104/55 99/57 O2 Sat by Pulse 100 95 97 Oximetry 07/21/18 07/21/18 07/21/18 07:11 07:21 07:31 Temperature Pulse Rate 81 90 90 Pulse Rate [ Anterior Bilateral Throughout] Pulse Rate [ Right Posterior Tibial] Respiratory 16 12 15 Rate Respiratory Rate [Anterior Bilateral Throughout] Blood Pressure 99/57 99/57 99/57 O2 Sat by Pulse 98 97 97 Oximetry 07/21/18 07/21/18 07/21/18 07:41 07:51 08:00 Temperature 98.1 F Pulse Rate 85 92 H Pulse Rate [ Anterior Bilateral Throughout] Pulse Rate [ 81 Right Posterior Tibial] Respiratory 11 L 26 H 15 Rate Respiratory Rate [Anterior Bilateral Throughout] Blood Pressure 99/57 99/57 O2 Sat by Pulse 96 96 Oximetry 07/21/18 07/21/18 07/21/18 08:01 08:10 08:23 Temperature Pulse Rate 85 91 H 84 Pulse Rate [ Anterior Bilateral Throughout] Pulse Rate [ Right Posterior Tibial] Respiratory 13 17 17 Rate Respiratory Rate [Anterior Bilateral Throughout] Blood Pressure 109/63 109/63 O2 Sat by Pulse 98 98 95 Oximetry 07/21/18 07/21/18 07/21/18 08:31 08:41 08:51 Temperature Pulse Rate 85 89 86 Pulse Rate [ Anterior Bilateral Throughout] Pulse Rate [ Right Posterior Tibial] Respiratory 14 14 14 Rate Respiratory Rate [Anterior Bilateral Throughout] Blood Pressure 109/63 109/63 O2 Sat by Pulse 95 95 95 Oximetry 07/21/18 07/21/18 07/21/18 09:00 09:11 09:21 Temperature Pulse Rate 82 83 82 Pulse Rate [ Anterior Bilateral Throughout] Pulse Rate [ Right Posterior Tibial] Respiratory 17 13 15 Rate Respiratory Rate [Anterior Bilateral Throughout] Blood Pressure 104/60 109/63 109/63 O2 Sat by Pulse 97 95 95 Oximetry 07/21/18 07/21/18 07/21/18 09:25 09:31 09:36 Temperature 97.3 F L Pulse Rate 91 H 83 Pulse Rate [ 89 Anterior Bilateral Throughout] Pulse Rate [ Right Posterior Tibial] Respiratory 13 14 Rate Respiratory 20 Rate [Anterior Bilateral Throughout] Blood Pressure 109/63 104/60 O2 Sat by Pulse 98 99 Oximetry 07/21/18 07/21/18 07/21/18 09:41 09:51 10:00 Temperature 97.7 F Pulse Rate 83 87 80 Pulse Rate [ 87 Anterior Bilateral Throughout] Pulse Rate [ Right Posterior Tibial] Respiratory 16 21 14 Rate Respiratory 20 Rate [Anterior Bilateral Throughout] Blood Pressure 109/63 109/63 106/58 O2 Sat by Pulse 98 96 94 Oximetry 07/21/18 07/21/18 07/21/18 10:11 10:20 10:21 Temperature 98.3 F Pulse Rate 82 82 88 Pulse Rate [ Anterior Bilateral Throughout] Pulse Rate [ Right Posterior Tibial] Respiratory 19 15 12 Rate Respiratory Rate [Anterior Bilateral Throughout] Blood Pressure 106/58 106/58 106/58 O2 Sat by Pulse 97 95 94 Oximetry 07/21/18 07/21/18 07/21/18 10:30 10:41 10:51 Temperature Pulse Rate 82 89 85 Pulse Rate [ Anterior Bilateral Throughout] Pulse Rate [ Right Posterior Tibial] Respiratory 12 20 12 Rate Respiratory Rate [Anterior Bilateral Throughout] Blood Pressure 109/52 106/58 106/58 O2 Sat by Pulse 96 93 95 Oximetry 07/21/18 07/21/18 07/21/18 11:00 11:11 11:21 Temperature Pulse Rate 82 79 85 Pulse Rate [ Anterior Bilateral Throughout] Pulse Rate [ Right Posterior Tibial] Respiratory 16 14 15 Rate Respiratory Rate [Anterior Bilateral Throughout] Blood Pressure 104/54 104/54 104/54 O2 Sat by Pulse 88 94 95 Oximetry 07/21/18 07/21/18 07/21/18 11:31 11:41 11:50 Temperature Pulse Rate 85 83 85 Pulse Rate [ Anterior Bilateral Throughout] Pulse Rate [ Right Posterior Tibial] Respiratory 14 12 12 Rate Respiratory Rate [Anterior Bilateral Throughout] Blood Pressure 111/57 111/57 111/57 O2 Sat by Pulse 93 92 95 Oximetry 07/21/18 07/21/18 07/21/18 12:00 12:01 12:11 Temperature 98.5 F Pulse Rate 94 H 79 Pulse Rate [ Anterior Bilateral Throughout] Pulse Rate [ Right Posterior Tibial] Respiratory 15 10 L Rate Respiratory Rate [Anterior Bilateral Throughout] Blood Pressure 111/57 111/57 O2 Sat by Pulse 89 97 Oximetry 07/21/18 07/21/18 07/21/18 12:14 12:18 12:20 Temperature 98.2 F 98.2 F Pulse Rate 78 79 80 Pulse Rate [ Anterior Bilateral Throughout] Pulse Rate [ Right Posterior Tibial] Respiratory 15 11 L 12 Rate Respiratory Rate [Anterior Bilateral Throughout] Blood Pressure 92/45 92/45 85/44 O2 Sat by Pulse 97 95 99 Oximetry 07/21/18 07/21/18 07/21/18 12:30 12:33 12:41 Temperature 99.0 F Pulse Rate 77 98 H 77 Pulse Rate [ Anterior Bilateral Throughout] Pulse Rate [ Right Posterior Tibial] Respiratory 15 15 13 Rate Respiratory Rate [Anterior Bilateral Throughout] Blood Pressure 102/53 112/58 93/45 O2 Sat by Pulse 98 96 97 Oximetry 07/21/18 07/21/18 07/21/18 12:51 13:01 13:03 Temperature 99.0 F Pulse Rate 82 82 98 H Pulse Rate [ Anterior Bilateral Throughout] Pulse Rate [ Right Posterior Tibial] Respiratory 11 L 13 20 Rate Respiratory Rate [Anterior Bilateral Throughout] Blood Pressure 93/45 93/45 112/58 O2 Sat by Pulse 97 95 98 Oximetry 07/21/18 07/21/18 07/21/18 13:11 13:21 13:30 Temperature Pulse Rate 98 H 88 87 Pulse Rate [ Anterior Bilateral Throughout] Pulse Rate [ Right Posterior Tibial] Respiratory 15 18 21 Rate Respiratory Rate [Anterior Bilateral Throughout] Blood Pressure 112/58 112/58 115/65 O2 Sat by Pulse 94 94 95 Oximetry 07/21/18 07/21/18 07/21/18 13:41 13:51 13:55 Temperature 98.5 F Pulse Rate 84 96 H 85 Pulse Rate [ Anterior Bilateral Throughout] Pulse Rate [ Right Posterior Tibial] Respiratory 13 13 15 Rate Respiratory Rate [Anterior Bilateral Throughout] Blood Pressure 115/65 115/65 115/65 O2 Sat by Pulse 92 90 93 Oximetry 07/21/18 07/21/18 07/21/18 13:57 14:00 14:11 Temperature 98.5 F Pulse Rate 85 85 82 Pulse Rate [ Anterior Bilateral Throughout] Pulse Rate [ Right Posterior Tibial] Respiratory 15 10 L 15 Rate Respiratory Rate [Anterior Bilateral Throughout] Blood Pressure 115/65 127/95 127/51 O2 Sat by Pulse 93 94 100 Oximetry 07/21/18 07/21/18 07/21/18 14:20 14:30 14:40 Temperature Pulse Rate 79 78 76 Pulse Rate [ Anterior Bilateral Throughout] Pulse Rate [ Right Posterior Tibial] Respiratory 14 15 12 Rate Respiratory Rate [Anterior Bilateral Throughout] Blood Pressure 113/51 112/52 111/51 O2 Sat by Pulse 100 100 100 Oximetry 07/21/18 07/21/18 07/21/18 14:47 14:51 15:00 Temperature Pulse Rate 89 88 83 Pulse Rate [ Anterior Bilateral Throughout] Pulse Rate [ Right Posterior Tibial] Respiratory 18 22 16 Rate Respiratory Rate [Anterior Bilateral Throughout] Blood Pressure 109/57 89/42 110/55 O2 Sat by Pulse 100 100 95 Oximetry 07/21/18 07/21/18 07/21/18 15:10 15:20 15:31 Temperature Pulse Rate 75 74 80 Pulse Rate [ Anterior Bilateral Throughout] Pulse Rate [ Right Posterior Tibial] Respiratory 14 17 15 Rate Respiratory Rate [Anterior Bilateral Throughout] Blood Pressure 120/60 121/59 124/66 O2 Sat by Pulse 95 97 95 Oximetry General appearance: Present: no acute distress, well-nourished - EENT Eyes: PERRL, EOM intact ENT: hearing intact, clear oral mucosa Ears: bilateral: normal - Neck Neck: supple, normal ROM - Respiratory Respiratory effort: normal Respiratory: bilateral: CTA - Breasts Breasts: normal - Cardiovascular Heart rate: 78 Rhythm: regular Heart Sounds: Present: S1 & S2. Absent: gallop, rub Extremities: pulses intact, No edema, normal color, Full ROM - Gastrointestinal General gastrointestinal: Present: soft, non-tender, non-distended, normal bowel sounds - Genitourinary Female genitourinary: normal - Integumentary Integumentary: clear, warm, dry - Musculoskeletal Musculoskeletal: 1, strength equal bilaterally - Neurologic Neurologic: moves all extremities - Psychiatric Psychiatric: memory intact, appropriate mood/affect, intact judgment & insight - Labs CBC & Chem 7: 07/22/18 05:19 07/20/18 11:12 Labs: Abnormal lab results 07/20/18 07/21/18 07/21/18 Range/Units 11:09 04:28 04:28 RBC 2.47 L (3.65-5.03) M/mm3 Hgb 7.9 L (10.1-14.3) gm/dl Hct 23.5 L (30.3-42.9) % RDW 15.5 H (13.2-15.2) % PT 47.2 H (12.2-14.9) Sec. INR 4.65 H (0.87-1.13) Crossmatch See Detail 07/21/18 Range/Units 11:11 RBC (3.65-5.03) M/mm3 Hgb (10.1-14.3) gm/dl Hct (30.3-42.9) % RDW (13.2-15.2) % PT 29.8 H (12.2-14.9) Sec. INR 2.62 H (0.87-1.13) Crossmatch
[2018-07-21 16:42] LABS: Hematocrit 20.2 % (30.3-42.9); Hemoglobin 6.6 gm/dl (10.1-14.3)
--- NOTE | 2018-07-21 17:14 | Operative Report ---
PROCEDURE: Upper endoscopy. PREOPERATIVE DIAGNOSIS: Melena, coffee-ground emesis. POSTOPERATIVE DIAGNOSES: Antral ulcer. SEDATION: MAC by Anesthesia. HISTORY: The patient is an 82-year-old woman, who was recently started on treatment with Coumadin. She developed melena which resolved overnight. She was anemic and was transfused. INR remains elevated because of the warfarin. Procedure, indications, risks, and benefits were explained and consent was obtained. The patient was placed in left lateral decubitus position and sedated. [employer] video upper scope was passed through the mouth and oropharynx into the descending duodenum. Scope was then gradually withdrawn with close inspection of mucosa. FINDINGS: 1. Three antral ulcers with white fibrinous base measuring approximately 1 cm, most in size. No stigmata of bleeding noted. There was surrounding edema. 2. Normal esophagus. 3. Otherwise, normal gastric antrum, fundus, body, and cardia. 4. Normal appearing duodenal bulb and duodenum. The patient tolerated the procedure well without immediate complication. IMPRESSION: 1. Antral ulcers with surrounding edema -- likely source of bleeding. No stigmata of active or recent bleeding noted. 2. Otherwise, normal endoscopy. PLAN: 1. Chronic proton pump inhibitors. 2. Monitor H and H and transfuse as needed. 3. May resume anticoagulation in 48 hours. JOB# [id number] HRC/NTS
[2018-07-21] MEDS ORDERED: LASIX IV ONE (20:09)
[2018-07-21 21:07] LABS: Hematocrit 20.2 % (30.3-42.9); Hemoglobin 6.7 gm/dl (10.1-14.3)
[2018-07-21] MEDS: SODIUM CHLORIDE FLUSH SYRINGE 10 ML IV SCH ×2 (23:03)
[2018-07-21] MEDS: PRAVACHOL PO SCH (23:21)
--- NOTE | 2018-07-21 23:44 | Vascular Lab Report ---
PROCEDURE: US BILATERAL LOWER EXTREMITY VENOUS DUPLEX DOPPLER TECHNIQUE: Duplex Doppler ultrasound of the BILATERAL common and superficial femoral, popliteal, pos terior tibial and proximal deep femoral and greater saphenous veins was attempted. Peterson scale imaging with and without compression, spectral waveform analysis with and without augmentation, and color fl ow Doppler were employed. CPT 72337 HISTORY: Pain and swelling COMPARISONS: None . FINDINGS: RIGHT LOWER EXTREMITY: Deep Venous Thrombus: None . Superficial Venous Thrombus: None . Venous valvular incompetence: None . Soft tissue abnormality: None . Other: None . LEFT LOWER EXTREMITY: Deep Venous Thrombus: None . Superficial Venous Thrombus: None . Venous valvular incompetence: None . Soft tissue abnormality: None . Other: There is a popliteal cyst measuring 3 cm. . IMPRESSION: No evidence of deep venous thrombosis . This document is electronically signed by Ethan Davis MD., Jul 21 2018 11:42:02 PM ET
--- NOTE | 2018-07-21 23:51 | Vascular Lab Report ---
PROCEDURE: VL ARTERIAL DUPLEX LE BILAT TECHNIQUE: Duplex Doppler ultrasound of either bilateral lower extremity arteries or arterial bypass grafts was performed with image documentation. HISTORY: BLE claudication COMPARISONS: None . FINDINGS: RIGHT LOWER EXTREMITY: There is mild focal stenosis of the mid superficial femoral artery. There is no occlusion. LEFT LOWER EXTREMITY: There is no arterial insufficiency. IMPRESSION: There is mild focal stenosis of the right mid superficial femoral artery. There is no occlusion. There is no left leg arterial insufficiency. This document is electronically signed by Ethan Davis MD., Jul 21 2018 11:50:17 PM ET
[2018-07-22] MEDS: ROXICODONE PO PRN ×4 (02:35→22:17)
[2018-07-22] MEDS: FLAGYL 500 MG/100 ML 500 MG/100 ML BAG IV SCH ×2 (05:22→16:58)
[2018-07-22] MEDS: TORADOL IV SCH ×3 (05:23→19:46)
[2018-07-22 06:33] LABS: Basophils % (Auto) 0.3 % (0.0-1.8); Eosinophils # (Auto) 0.3 K/mm3 (0.0-0.4); Eosinophils % (Auto) 5.2 % (0.0-4.3); Hematocrit 22.6 % (30.3-42.9); Hemoglobin 7.7 gm/dl (10.1-14.3); Lymphocytes # (Auto) 2.1 K/mm3 (1.2-5.4); Lymphocytes % (Auto) 33.2 % (13.4-35.0); Mean Corpuscular HGB Conc 34 % (30-34); Mean Corpuscular Volume 90 fl (79-97); Monocytes # (Auto) 0.5 K/mm3 (0.0-0.8); Monocytes % (Auto) 8.3 % (0.0-7.3); Platelet Count 133 K/mm3 (140-440); Red Blood Count 2.53 M/mm3 (3.65-5.03); Red Cell Distribution Width 19.1 % (13.2-15.2)
[2018-07-22] MEDS: PROTONIX 80 MG in NACL 0.9% 100 ML IV SCH ×2 (08:14→18:39)
[2018-07-22] MEDS: PULMICORT IH SCH ×2 (08:24→19:44)
[2018-07-22 09:48] LABS: BUN/Creatinine Ratio 23; Blood Urea Nitrogen 16 mg/dL (7-17); Calcium 8.2 mg/dL (8.4-10.2); Hemolysis Index 3
[2018-07-22] MEDS: LEVAQUIN 500MG/100ML 500 MG/100 ML BAG IV SCH (10:47)
[2018-07-22] MEDS: ZESTRIL PO SCH (10:48)
[2018-07-22] MEDS: NEURONTIN PO SCH ×2 (10:48→22:11)
[2018-07-22] MEDS: K-DUR PO SCH (10:48)
[2018-07-22] MEDS: HCTZ PO SCH (10:48)
[2018-07-22] MEDS: SODIUM CHLORIDE FLUSH SYRINGE 10 ML IV SCH ×2 (10:49→22:11)
[2018-07-22] MEDS: CYMBALTA PO SCH (10:49)
--- NOTE | 2018-07-22 11:28 | Event Note ---
Date: 07/22/18 Lower extremity venous duplex reviewed, no evidence of DVT. Patient has a Orlando's Cyst in the left popliteal fossa, no other significant findings. Her lower extremity arterial duplex was reviewed and there is no evidence of flow- limiting stenosis. No need for IVC filter placement or anticoagulation for treatment of deep venous thrombosis, additionally there in no need fo intervention of peripheral vascular disease.
--- NOTE | 2018-07-22 13:56 | Gastroenterology Progress Note ---
Assessment and Plan 1.UGIB 2.melena 3.coffee-ground emesis 4.H/o PUD 5.RLE DVT (started anticoagulants last week; initially on lovenox then switched to coumadin) -H/H 7.7/22.6 -continue to monitor H/H and transfuse as needed -last EGD 2017 at [facility] revealed ulcer per pt report -s/p EGD yesterday that showed 3 white-based antral ulcers with surrounding edema and no stigmata of bleeding -clinically, patient is stable with no active signs of bleeding overnight or this am. Denies abd pain or N/V. -okay to resume diet -transition PPI to PO BID -avoid NSAIDs -okay to resume anticoagulation tomorrow if needed, however lower extremity venous duplex showed no evidence of DVT with no need for IVC filter per IR -continue supportive care -if labs remain stable in am with no further bleeding, patient is okay to be d/c per GI standpoint on PPI with f/u with GI provider at [facility] Subjective Date of service: 07/22/18 Principal diagnosis: Upper GI Bleed Interval history: No acute distress. No active signs of bleeding overnight or this am. Denies abd pain or N/V. Has continued sciatica pain. Objective - Constitutional Vitals: Temp Pulse Resp BP Pulse Ox 97.6 F 92 H 16 109/68 100 07/22/18 07:30 07/22/18 10:00 07/22/18 07:30 07/22/18 10:48 07/22/18 07:30 General appearance: no acute distress - Respiratory Respiratory: bilateral: CTA - Cardiovascular Rhythm: regular - Gastrointestinal General gastrointestinal: Present: soft, non-tender, non-distended, normal bowel sounds - Neurologic Neurological: alert and oriented x3 - Labs CBC & Chem 7: 07/22/18 05:07/22/18 09:06 Labs: Laboratory Results - last 24 hr 07/20/18 07/21/18 07/21/18 11:09 16:25 17:20 WBC RBC Hgb 6.6 L Hct 20.2 L MCV MCH MCHC RDW Plt Count Lymph % (Auto) Long % (Auto) Eos % (Auto) Baso % (Auto) Lymph # Long # Eos # Baso # Seg Neutrophils % Seg Neutrophils # Sodium Potassium Chloride Carbon Dioxide Anion Gap BUN Creatinine Estimated GFR BUN/Creatinine Ratio Glucose POC Glucose 99 Calcium Blood Type O POSITIVE Antibody Screen Negative Crossmatch See Detail 07/21/18 07/22/18 07/22/18 20:42 05:19 07:37 WBC 6.4 RBC 2.53 L Hgb 6.7 L 7.7 L Hct 20.2 L 22.6 L MCV 90 MCH 31 MCHC 34 RDW 19.1 H Plt Count 133 L Lymph % (Auto) 33.2 Long % (Auto) 8.3 H Eos % (Auto) 5.2 H Baso % (Auto) 0.3 Lymph # 2.1 Long # 0.5 Eos # 0.3 Baso # 0.0 Seg Neutrophils % 53.0 Seg Neutrophils # 3.4 Sodium Potassium Chloride Carbon Dioxide Anion Gap BUN Creatinine Estimated GFR BUN/Creatinine Ratio Glucose POC Glucose 98 Calcium Blood Type Antibody Screen Crossmatch 07/22/18 07/22/18 09:06 11:29 WBC RBC Hgb Hct MCV MCH MCHC RDW Plt Count Lymph % (Auto) Long % (Auto) Eos % (Auto) Baso % (Auto) Lymph # Long # Eos # Baso # Seg Neutrophils % Seg Neutrophils # Sodium 146 H Potassium 3.3 L Chloride 106.6 Carbon Dioxide 28 Anion Gap 15 BUN 16 Creatinine 0.7 Estimated GFR > 60 BUN/Creatinine Ratio 23 Glucose 104 H POC Glucose 107 H Calcium 8.2 L Blood Type Antibody Screen Crossmatch
--- NOTE | 2018-07-22 14:32 | Progress Note ---
Assessment and Plan Acute GIB, with anemia Coagulopathy, with coumadin toxicity Supratherapeutic INR h/o Peptic ulcer disease, s/p EGD RLE DVT Hypernatremia Uremia, secondary to GI bleed Chronic pain, back pain h/o Tobacco use disorder - recommend stopping Toradol in this lady with acute G.I. Bleed - wean off oxygen for sats > 90% - add LABA (Brovana) for moderate to severe COPD - continue pulmicort - Supportive transfusions, keep HgB >7g/dL - anticoagulation decision per G.I / Vascular teams - continue GI prophylaxis - prn analgesia - Smoking cessation counselling again stressed at bedside - continue nicotine withdrawal precautions CODE STATUS: FULL CODE Subjective Date of service: 07/22/18 Principal diagnosis: Acute GIB (upper); ABLA; Coagulopathy/coumadin toxicity; RLE DVT Interval history: Patient is seen today for: Acute GIB, with anemia; Coagulopathy, with coumadin toxicity; Supratherapeutic INR; h/o Peptic ulcer disease, s/p EGD; RLE DVT; Hypernatremia Seen and examined at bedside; 24hour events reviewed; nursing and respiratory care staff consulted; no adverse overnight events reported to me; resting peacefully in bed; on supplemental oxygen at 2L/min; denies acute chest pains or palpitations; no gross GI bleeding Objective Vital Signs - 12hr 07/22/18 07/22/18 07/22/18 07:30 10:00 10:48 Temperature 97.6 F Pulse Rate 75 92 H Respiratory 16 Rate Blood Pressure 109/68 109/68 O2 Sat by Pulse 100 Oximetry Constitutional: alert, appears uncomfortable, other (elderly looking AAF, normocephalic and atraumatic) Eyes: non-icteric ENT: oropharynx moist, other (mallampati 2) Neck: supple, no lymphadenopathy, no JVD Effort: mildly labored Ascultation: Bilateral: diminished breath sounds, rhonchi (scant in bases) Percussion: Bilateral: not dull Cardiovascular: regular rate and rhythm, other (S1,S2, no murmurs, gallops or rubs) Gastrointestinal: normoactive bowel sounds, soft, non-tender, non-distended, other (no hepatosplenomegaly) Integumentary: normal Extremities: no cyanosis, pulses normal, no ischemia or petechiae, edema (Right lower extremity) Neurologic: normal mental status, non-focal exam (grossly), pupils equal and round, CN II-XII normal, motor strength normal and Psychiatric: mood appropriate, affect normal CBC and BMP: 07/22/18 05:07/22/18 09:06 ABG, PT/INR, D-dimer: PT/INR, D-dimer PT 29.8 Sec. (12.2-14.9) H 07/21/18 11:11 INR 2.62 (0.87-1.13) H 07/21/18 11:11 Abnormal lab findings: Abnormal Labs 07/20/18 07/20/18 07/20/18 11:09 11:12 11:12 WBC 17.5 H RBC 3.07 L Hgb 9.6 L Hct 29.3 L RDW 15.3 H Plt Count [place] % (Auto) Eos % (Auto) Seg Neutrophils % 76.0 H Seg Neutrophils # 13.3 H PT 53.0 H INR 5.38 H* APTT 92.5 H* Sodium Potassium Chloride BUN Glucose POC Glucose Lactic Acid Calcium Total Protein Albumin Crossmatch See Detail 07/20/18 07/20/18 07/21/18 11:12 14:49 04:28 WBC RBC 2.47 L Hgb 7.9 L Hct 23.5 L RDW 15.5 H Plt Count [place] % (Auto) Eos % (Auto) Seg Neutrophils % Seg Neutrophils # PT INR APTT Sodium 146 H Potassium Chloride 108.7 H BUN 43 H Glucose 194 H POC Glucose Lactic Acid 3.10 H* Calcium Total Protein 5.8 L Albumin 2.9 L Crossmatch 07/21/18 07/21/18 07/21/18 04:28 11:11 16:25 WBC RBC Hgb 6.6 L Hct 20.2 L RDW Plt Count [place] % (Auto) Eos % (Auto) Seg Neutrophils % Seg Neutrophils # PT 47.2 H 29.8 H INR 4.65 H 2.62 H APTT Sodium Potassium Chloride BUN Glucose POC Glucose Lactic Acid Calcium Total Protein Albumin Crossmatch 07/21/18 07/22/18 07/22/18 20:42 05:19 09:06 WBC RBC 2.53 L Hgb 6.7 L 7.7 L Hct 20.2 L 22.6 L RDW 19.1 H Plt Count 133 L [place] % (Auto) 8.3 H Eos % (Auto) 5.2 H Seg Neutrophils % Seg Neutrophils # PT INR APTT Sodium 146 H Potassium 3.3 L Chloride BUN Glucose 104 H POC Glucose Lactic Acid Calcium 8.2 L Total Protein Albumin Crossmatch 07/22/18 11:29 WBC RBC Hgb Hct RDW Plt Count [place] % (Auto) Eos % (Auto) Seg Neutrophils % Seg Neutrophils # PT INR APTT Sodium Potassium Chloride BUN Glucose POC Glucose 107 H Lactic Acid Calcium Total Protein Albumin Crossmatch Chest x-ray: image reviewed (COPD) Allied health notes reviewed: nursing
[2018-07-22] MEDS: PROVENTIL IH PRN (19:44)
--- NOTE | 2018-07-22 21:09 | Progress Note ---
Assessment and Plan - Patient Problems (1) DVT (deep venous thrombosis) Current Visit: Yes Status: Acute Plan to address problem: She was on Coumadin for DVT. Follow-up ultrasound does not show any evidence of DVT also normal arterial Doppler as well. We'll discontinue Coumadin. (2) Blood loss anemia Current Visit: Yes Status: Acute Plan to address problem: Blood loss anemia secondary to peptic ulcer disease appears to be improved at this time. No further episodes of bleeding. No dark stool patient tolerating by mouth. (3) GI bleed Current Visit: Yes Status: Acute Qualifiers: GI bleed type/associated pathology: anorectal hemorrhage Qualified Code(s): K62.5 - Hemorrhage of anus and rectum Plan to address problem: Negative peptic ulcer disease at the EGD. Stable discontinue Coumadin. (4) Supratherapeutic INR Current Visit: Yes Status: Acute Plan to address problem: Discontinue Coumadin. History Interval history: Patient today feels better. Her niece is at bedside and answered all questions and concerns today satisfaction. Hospitalist Physical - Constitutional Vitals: Temp Pulse Resp BP Pulse Ox 99.1 F 72 18 102/68 100 07/22/18 13:58 07/22/18 19:46 07/22/18 19:46 07/22/18 13:58 07/22/18 19:47 General appearance: Present: no acute distress, well-nourished - EENT Eyes: Present: PERRL, EOM intact ENT: hearing intact, clear oral mucosa, dentition normal, no oropharyngeal erythema, no poor dentition, no thrush - Neck Neck: Present: supple, normal ROM - Respiratory Respiratory effort: normal Respiratory: bilateral: CTA - Cardiovascular Rhythm: regular - Extremities Extremities: no ischemia, pulses intact, pulses symmetrical, No edema, normal temperature, normal color Peripheral Pulses: within normal limits - Abdominal General gastrointestinal: soft, non-tender, non-distended, normal bowel sounds - Integumentary Integumentary: Present: clear, warm, dry - Psychiatric Psychiatric: appropriate mood/affect, intact judgment & insight - Neurologic Neurologic: CNII-XII intact, moves all extremities Results - Labs CBC & Chem 7: 07/22/18 05:19 07/22/18 09:06 Labs: Laboratory Last Values WBC 6.4 K/mm3 (4.5-11.0) 07/22/18 05:19 RBC 2.53 M/mm3 (3.65-5.03) L 07/22/18 05:19 Hgb 7.7 gm/dl (10.1-14.3) L 07/22/18 05:19 Hct 22.6 % (30.3-42.9) L 07/22/18 05:19 MCV 90 fl (79-97) 07/22/18 05:19 MCH 31 pg (28-32) 07/22/18 05:19 MCHC 34 % (30-34) 07/22/18 05:19 RDW 19.1 % (13.2-15.2) H 07/22/18 05:19 Plt Count 133 K/mm3 (140-440) L 07/22/18 05:19 Lymph % (Auto) 33.2 % (13.4-35.0) 07/22/18 05:19 [place] % (Auto) 8.3 % (0.0-7.3) H 07/22/18 05:19 Eos % (Auto) 5.2 % (0.0-4.3) H 07/22/18 05:19 Baso % (Auto) 0.3 % (0.0-1.8) 07/22/18 05:19 Lymph # 2.1 K/mm3 (1.2-5.4) 07/22/18 05:19 [place] # 0.5 K/mm3 (0.0-0.8) 07/22/18 05:19 Eos # 0.3 K/mm3 (0.0-0.4) 07/22/18 05:19 Baso # 0.0 K/mm3 (0.0-0.1) 07/22/18 05:19 Seg Neutrophils % 53.0 % (40.0-70.0) 07/22/18 05:19 Seg Neutrophils # 3.4 K/mm3 (1.8-7.7) 07/22/18 05:19 PT 29.8 Sec. (12.2-14.9) H 07/21/18 11:11 INR 2.62 (0.87-1.13) H 07/21/18 11:11 APTT 92.5 Sec. (24.2-36.6) H* 07/20/18 11:12 Sodium 146 mmol/L (137-145) H 07/22/18 09:06 Potassium 3.3 mmol/L (3.6-5.0) L 07/22/18 09:06 Chloride 106.6 mmol/L (98-107) 07/22/18 09:06 Carbon Dioxide 28 mmol/L (22-30) 07/22/18 09:06 Anion Gap 15 mmol/L 07/22/18 09:06 BUN 16 mg/dL (7-17) 07/22/18 09:06 Creatinine 0.7 mg/dL (0.7-1.2) 07/22/18 09:06 Estimated GFR > 60 ml/min 07/22/18 09:06 BUN/Creatinine Ratio 23 % 07/22/18 09:06 Glucose 104 mg/dL (65-100) H 07/22/18 09:06 POC Glucose 91 (70-105) 07/22/18 16:32 Lactic Acid 1.30 mmol/L (0.7-2.0) 07/21/18 04:28 Calcium 8.2 mg/dL (8.4-10.2) L 07/22/18 09:06 Total Bilirubin < 0.20 mg/dL (0.1-1.2) 07/20/18 11:12 AST 29 units/L (5-40) 07/20/18 11:12 ALT 24 units/L (7-56) 07/20/18 11:12 Alkaline Phosphatase 61 units/L (35-129) 07/20/18 11:12 Total Protein 5.8 g/dL (6.3-8.2) L 07/20/18 11:12 Albumin 2.9 g/dL (3.9-5) L 07/20/18 11:12 Albumin/Globulin Ratio 1.0 % 07/20/18 11:12 Urine Color Straw (Yellow) 07/20/18 16:48 Urine Turbidity Clear (Clear) 07/20/18 16:48 Urine pH 5.0 (5.0-7.0) 07/20/18 16:48 Urine Protein <15 mg/dl mg/dL (Negative) 07/20/18 16:48 Urine Glucose (UA) Neg mg/dL (Negative) 07/20/18 16:48 Urine Ketones Neg mg/dL (Negative) 07/20/18 16:48 Urine Blood Mod (Negative) 07/20/18 16:48 Urine Nitrite Neg (Negative) 07/20/18 16:48 Urine Bilirubin Neg (Negative) 07/20/18 16:48 Urine Urobilinogen < 2.0 mg/dL (<2.0) 07/20/18 16:48 Ur Leukocyte Esterase Neg (Negative) 07/20/18 16:48 Urine WBC (Auto) < 1.0 /HPF (0.0-6.0) 07/20/18 16:48 Urine RBC (Auto) 1.0 /HPF (0.0-6.0) 07/20/18 16:48 U Epithel Cells (Auto) 3.0 /HPF (0-13.0) 07/20/18 16:48 Blood Type O POSITIVE 07/20/18 11:09 Antibody Screen Negative 07/20/18 11:09 Crossmatch See Detail 07/20/18 11:09 Active Medications - Current Medications Current Medications: Generic Name Dose Route Start Last Admin Trade Name Freq PRN Reason Stop Dose Admin Albuterol 2.5 mg 07/20/18 13:27 07/22/18 19:44 Proventil IH 2.5 mg Q3HRT PRN Administration Shortness Of Breath Budesonide 0.5 mg 07/21/18 08:00 07/22/18 19:44 Pulmicort IH 0.5 mg Q12HRT LUCIEN Administration Duloxetine HCl 60 mg 07/21/18 10:00 07/22/18 10:49 Cymbalta PO 60 mg QDAY LUCIEN Administration Gabapentin 600 mg 07/20/18 14:00 07/22/18 10:48 Neurontin PO 600 mg BID LUCIEN Administration Hydrochlorothiazide 25 mg 07/21/18 10:00 07/22/18 10:48 Hctz PO 25 mg QDAY LUCIEN Administration Pantoprazole Sodium 80 mg/ 100 mls @ 10 mls/hr 07/20/18 11:00 07/22/18 18:39 Sodium Chloride IV 8 mg/hr DIRECT LUCIEN 10 mls/hr Administration 8 MG/HR Sodium Chloride 1,000 mls @ 50 mls/hr 07/21/18 10:00 07/22/18 00:03 Nacl 0.9% 1000 Ml IV 50 mls/hr DIRECT LUCIEN Administration Sodium Chloride 1,000 mls @ 50 mls/hr 07/21/18 14:00 07/21/18 14:02 Nacl 0.9% 1000 Ml IV 50 mls/hr DIRECT LUCIEN Administration Ketorolac Tromethamine 30 mg 07/21/18 06:00 07/22/18 19:46 Toradol IV 07/26/18 05:59 30 mg Q6HR LUCIEN Administration Lisinopril 20 mg 07/21/18 10:00 07/22/18 10:48 Zestril PO 20 mg QDAY LUCIEN Administration Ondansetron HCl 4 mg 07/20/18 13:27 Zofran IV Q8H PRN Nausea And Vomiting Oxycodone HCl 10 mg 07/20/18 13:40 07/22/18 10:48 Roxicodone PO 10 mg Q4H PRN Administration Pain, Moderate (4-6) Potassium Chloride 10 meq 07/21/18 10:00 07/22/18 10:48 K-Dur PO 10 meq QDAY LUCIEN Administration Pravastatin Sodium 80 mg 07/20/18 22:00 07/21/18 23:21 Pravachol PO 80 mg QHS LUCIEN Administration Sodium Chloride 10 ml 07/20/18 22:00 07/22/18 10:49 Sodium Chloride Flush Syringe 10 Ml IV 10 ml BID LUCIEN Administration Sodium Chloride 10 ml 07/20/18 13:27 Sodium Chloride Flush Syringe 10 Ml IV PRN PRN LINE FLUSH
[2018-07-22] MEDS: PRAVACHOL PO SCH (22:11)
[2018-07-23] MEDS: ROXICODONE PO PRN ×2 (06:15→09:46)
[2018-07-23 07:32] VITALS: BP 100/52
[2018-07-23] MEDS ORDERED: BROVANA NEBU IH SCH (08:00)
[2018-07-23] MEDS: PULMICORT IH SCH (08:19)
[2018-07-23] MEDS: ZESTRIL PO SCH (09:45)
[2018-07-23] MEDS: CYMBALTA PO SCH (09:45)
[2018-07-23] MEDS: HCTZ PO SCH (09:46)
[2018-07-23] MEDS: NEURONTIN PO SCH (09:46)
[2018-07-23] MEDS: K-DUR PO SCH (09:46)
[2018-07-23 09:53] LABS: Hemoglobin 8.3 gm/dl (10.1-14.3)
[2018-07-23] MEDS ORDERED: PROTONIX IV SCH (10:00)
[2018-07-23] MEDS: SODIUM CHLORIDE FLUSH SYRINGE 10 ML IV SCH (10:12)
--- NOTE | 2018-07-23 11:12 | Discharge Summary ---
Providers - Providers Date of Admission: 07/20/18 13:27 Date of discharge: 07/23/18 Attending physician: MANJU PINEDA 07/20/18 11:15 Consult to Physician [CONS] Stat Comment: Consulting Provider: AMBER MARCH Physician Instructions: Reason For Exam: GI bleed, hypotensive 07/20/18 14:04 Consult to Physician [CONS] Routine Comment: Consulting Provider: MEREDITH FREITAS Physician Instructions: Reason For Exam: GI bleed 07/20/18 14:31 Consult to Interventional Radiology [CONS] Routine Consulting Provider: ARPITA PETERSON Reason For Exam: possible ivc filter Notified:: MANJU JENSEN [facility] Condition: Serious Pertinent studies: Patient EGD which showed 3 ulcers with surrounding edema consistent with an area of bleeding. Follow-up vascular ultrasound showed Orlando's cyst without any DVT. Patient also had a unremarkable arterial Doppler done as well. Hospital course: Patient 82-year-old female that had a prior history recently of oh. DVT was placed on Coumadin. Presented here for acute GI blood loss anemia. H&H was less than 7 had significant anemia. Patient required transfusion a total of 6 units packed red blood cells. Seemed to tolerate well. Have follow-up EGD showed 3 ulcers upon survey. No further bleeding. Patient's INR was found to be supratherapeutic. Upon finding out the patient did not have a clot we discontinued the Coumadin. Patient stable to be discharged home without Coumadin. I will primary care physician 3-5 days. Disposition: TO HOME OR SELFCARE - Discharge Diagnoses (1) DVT (deep venous thrombosis) Status: Acute Comment: Venous Doppler negative for DVT C vascular surgery note. (2) Blood loss anemia Status: Acute (3) GI bleed Status: Acute Qualifiers: GI bleed type/associated pathology: anorectal hemorrhage Qualified Code(s): K62.5 - Hemorrhage of anus and rectum Comment: Bleeding is resolved discontinuation of Coumadin H&H has remained stable. (4) Supratherapeutic INR Status: Ruled-out Core Measure Documentation - Palliative Care Palliative Care/ Comfort Measures: Not Applicable - Core Measures Any of the following diagnoses?: none Exam - Constitutional Vitals: Temp Pulse Resp BP Pulse Ox 98.2 F 74 20 100/52 91 07/23/18 07:21 07/23/18 07:21 07/23/18 07:21 07/23/18 09:45 07/23/18 07:21 General appearance: Present: no acute distress, well-nourished - EENT Eyes: Present: PERRL ENT: hearing intact, clear oral mucosa - Neck Neck: Present: supple, normal ROM - Respiratory Respiratory effort: normal Respiratory: bilateral: CTA - Cardiovascular Heart Sounds: Present: S1 & S2. Absent: rub, click - Extremities Extremities: pulses symmetrical, No edema Peripheral Pulses: within normal limits - Abdominal General gastrointestinal: Present: soft, non-tender, non-distended, normal bowel sounds Female genitourinary: Present: normal - Integumentary Integumentary: Present: clear, warm, dry - Musculoskeletal Musculoskeletal: gait normal, strength equal bilaterally - Psychiatric Psychiatric: appropriate mood/affect, intact judgment & insight - Neurologic Neurologic: CNII-XII intact, moves all extremities Plan Activity: no restrictions Weight Bearing Status: Weight Bear as Tolerated Diet: low cholesterol, low salt Follow up with: KAI YEH MD [Primary Care Provider] - 3-5 Days Forms: Accompanied Note Prescriptions: Ipratropium/Albuter (Nf) [Combivent Inhaler] 1 puff IH QID #30 inha Oxycodone HCl [oxyCODONE] 10 mg PO Q4-6H PRN #20 tablet PRN Reason: Pain Lisinopril/Hydrochlorothiazide [Zestoretic 20-25 mg] 1 tab PO QDAY #30 tablet Lisinopril [Zestril TAB] 20 mg PO QDAY #30 tablet
--- NOTE | 2018-07-23 11:15 | Gastroenterology Progress Note ---
Assessment and Plan 1.UGIB 2.melena 3.coffee-ground emesis 4.H/o PUD -H/H 8.3/25.0-trending up -continue to monitor H/H and transfuse as needed -EGD 2018 at [facility] revealed ulcer per pt report -s/p EGD 07/21/18 that showed 3 white-based antral ulcers with surrounding edema and no stigmata of bleeding (no bx obtained given elevated INR) -clinically, patient is stable with no active signs of bleeding overnight or this am. Denies abd pain or N/V. Tolerating diet. -continue PPI BID -avoid NSAIDs -continue supportive care -patient okay to be d/c per GI standpoint on PPI with f/u with GI provider at [facility] -will sign off, please call if needed 5.RLE DVT -started anticoagulants last week; initially on lovenox then switched to coumadin -repeat lower extremity venous duplex this admission showed no evidence of DVT with no recommendations for IVC filter or anticoagulation per IR Subjective Date of service: 07/23/18 Principal diagnosis: GI bleed Interval history: Patient sitting on the side of the bed this am w/o acute distress. Denies any active signs of bleeding overnight, abd pain, or N/V. Tolerating diet. Objective - Constitutional Vitals: Temp Pulse Resp BP Pulse Ox 98.2 F 74 20 100/52 91 07/23/18 07:21 07/23/18 07:21 07/23/18 07:21 07/23/18 09:45 07/23/18 07:21 General appearance: no acute distress - Respiratory Respiratory: bilateral: CTA - Cardiovascular Rhythm: regular - Gastrointestinal General gastrointestinal: Present: soft, non-tender, non-distended, normal bowel sounds - Neurologic Neurological: alert and oriented x3 - Labs CBC & Chem 7: 07/23/18 09:22 07/22/18 09:06 Labs: Laboratory Results - last 24 hr 07/20/18 07/22/18 07/22/18 11:09 11:29 16:32 Hgb Hct POC Glucose 107 H 91 Crossmatch See Detail 07/22/18 07/23/18 07/23/18 22:46 07:42 09:22 Hgb 8.3 L Hct 25.0 L POC Glucose 133 H 105 Crossmatch
--- NOTE | 2018-07-23 12:06 | Progress Note ---
Assessment and Plan Acute GIB, with anemia Coagulopathy, with coumadin toxicity Supratherapeutic INR h/o Peptic ulcer disease, s/p EGD RLE DVT Hypernatremia Uremia, secondary to GI bleed Chronic pain, back pain h/o Tobacco use disorder - stopped Toradol in this lady with acute G.I. Bleed - continue to wean off oxygen for sats > 90% - continue LABA (Brovana) for moderate to severe COPD - continue pulmicort - Supportive transfusions, keep HgB >7g/dL - anticoagulation decision per G.I / Vascular teams - continue GI prophylaxis - prn analgesia - Smoking cessation counselling again stressed at bedside - continue nicotine withdrawal precautions CODE STATUS: FULL CODE Subjective Date of service: 07/23/18 Principal diagnosis: Acute GIB (upper); ABLA; Coagulopathy/coumadin toxicity; RLE DVT Interval history: Patient is seen today for: Acute GIB, with anemia; Coagulopathy, with coumadin toxicity; Supratherapeutic INR; h/o Peptic ulcer disease, s/p EGD; RLE DVT; Hypernatremia Seen and examined at bedside; 24hour events reviewed; nursing and respiratory care staff consulted; no adverse overnight events reported to me; resting peacefully in bed; denies acute chest pain or SOB; denies any gross bleeding; no N/V/F/C Objective Vital Signs - 12hr 07/23/18 07/23/18 07/23/18 02:43 02:44 04:00 Temperature 98.6 F Pulse Rate 76 74 72 Respiratory 20 Rate Blood Pressure 114/77 O2 Sat by Pulse 100 100 Oximetry 07/23/18 07/23/18 07/23/18 06:15 07:15 07:21 Temperature 98.2 F Pulse Rate 74 Respiratory 20 20 20 Rate Blood Pressure 100/52 O2 Sat by Pulse 91 Oximetry 07/23/18 09:45 Temperature Pulse Rate Respiratory Rate Blood Pressure 100/52 O2 Sat by Pulse Oximetry Constitutional: alert, appears uncomfortable, other (elderly looking AAF, normocephalic and atraumatic) Eyes: non-icteric ENT: oropharynx moist, other (mallampati 2) Neck: supple, no lymphadenopathy, no JVD Effort: mildly labored Ascultation: Bilateral: clear, diminished breath sounds Percussion: Bilateral: not dull Cardiovascular: regular rate and rhythm, other (S1,S2, no murmurs, gallops or rubs) Gastrointestinal: normoactive bowel sounds, soft, non-tender, non-distended, other (no hepatosplenomegaly) Integumentary: normal Extremities: no cyanosis, pulses normal, no ischemia or petechiae, edema (Right lower extremity) Neurologic: normal mental status, non-focal exam (grossly), pupils equal and round, CN II-XII normal, motor strength normal and Psychiatric: mood appropriate, affect normal CBC and BMP: 07/23/18 09:22 07/22/18 09:06 ABG, PT/INR, D-dimer: PT/INR, D-dimer PT 29.8 Sec. (12.2-14.9) H 07/21/18 11:11 INR 2.62 (0.87-1.13) H 07/21/18 11:11 Abnormal lab findings: Abnormal Labs 07/20/18 07/20/18 07/20/18 11:09 11:12 11:12 WBC 17.5 H RBC 3.07 L Hgb 9.6 L Hct 29.3 L RDW 15.3 H Plt Count [place] % (Auto) Eos % (Auto) Seg Neutrophils % 76.0 H Seg Neutrophils # 13.3 H PT 53.0 H INR 5.38 H* APTT 92.5 H* Sodium Potassium Chloride BUN Glucose POC Glucose Lactic Acid Calcium Total Protein Albumin Crossmatch See Detail 07/20/18 07/20/18 07/21/18 11:12 14:49 04:28 WBC RBC 2.47 L Hgb 7.9 L Hct 23.5 L RDW 15.5 H Plt Count [place] % (Auto) Eos % (Auto) Seg Neutrophils % Seg Neutrophils # PT INR APTT Sodium 146 H Potassium Chloride 108.7 H BUN 43 H Glucose 194 H POC Glucose Lactic Acid 3.10 H* Calcium Total Protein 5.8 L Albumin 2.9 L Crossmatch 07/21/18 07/21/18 07/21/18 04:28 11:11 16:25 WBC RBC Hgb 6.6 L Hct 20.2 L RDW Plt Count [place] % (Auto) Eos % (Auto) Seg Neutrophils % Seg Neutrophils # PT 47.2 H 29.8 H INR 4.65 H 2.62 H APTT Sodium Potassium Chloride BUN Glucose POC Glucose Lactic Acid Calcium Total Protein Albumin Crossmatch 07/21/18 07/22/18 07/22/18 20:42 05:19 09:06 WBC RBC 2.53 L Hgb 6.7 L 7.7 L Hct 20.2 L 22.6 L RDW 19.1 H Plt Count 133 L [place] % (Auto) 8.3 H Eos % (Auto) 5.2 H Seg Neutrophils % Seg Neutrophils # PT INR APTT Sodium 146 H Potassium 3.3 L Chloride BUN Glucose 104 H POC Glucose Lactic Acid Calcium 8.2 L Total Protein Albumin Crossmatch 07/22/18 07/22/18 07/23/18 11:29 22:46 09:22 WBC RBC Hgb 8.3 L Hct 25.0 L RDW Plt Count [place] % (Auto) Eos % (Auto) Seg Neutrophils % Seg Neutrophils # PT INR APTT Sodium Potassium Chloride BUN Glucose POC Glucose 107 H 133 H Lactic Acid Calcium Total Protein Albumin Crossmatch 07/23/18 11:52 WBC RBC Hgb Hct RDW Plt Count [place] % (Auto) Eos % (Auto) Seg Neutrophils % Seg Neutrophils # PT INR APTT Sodium Potassium Chloride BUN Glucose POC Glucose 186 H Lactic Acid Calcium Total Protein Albumin Crossmatch Allied health notes reviewed: nursing
[2018-07-24] MEDS ORDERED: PROTONIX PO SCH (10:00)
== END 2018-07-23 13:40 | disposition home or self-care (01) | DRG 378 ==
LOC: ED 10:09 → IMCU 13:27 → CC1 14:08 → 2B-ACE 07-21 18:43
PROVIDERS: ADMIT Internal Medicine; ATTEND Internal Medicine
PROC: 0DJ08ZZ Inspection of Upper Intestinal Tract, Via Natural or Artificial Opening Endoscopic (ICD-10-PCS; principal; 2018-07-21)
PROC: 30233K1 Transfusion of Nonautologous Frozen Plasma into Peripheral Vein, Percutaneous Approach (ICD-10-PCS; 2018-07-21)
PROC: 30233N1 Transfusion of Nonautologous Red Blood Cells into Peripheral Vein, Percutaneous Approach (ICD-10-PCS; 2018-07-21)
DX: K25.4 Chronic or unspecified gastric ulcer with hemorrhage (principal); D62 Acute posthemorrhagic anemia; R65.10 Systemic inflammatory response syndrome (SIRS) of non-infectious origin without acute organ dysfunction; E87.0 Hyperosmolality and hypernatremia; D68.9 Coagulation defect, unspecified; R42 Dizziness and giddiness; E11.9 Type 2 diabetes mellitus without complications; M19.90 Unspecified osteoarthritis, unspecified site; F17.210 Nicotine dependence, cigarettes, uncomplicated; M54.30 Sciatica, unspecified side; K62.5 Hemorrhage of anus and rectum; T45.515A Adverse effect of anticoagulants, initial encounter; Y92.89 Other specified places as the place of occurrence of the external cause; G89.29 Other chronic pain; M71.20 Synovial cyst of popliteal space [Baker], unspecified knee; Z79.84 Long term (current) use of oral hypoglycemic drugs; Z86.718 Personal history of other venous thrombosis and embolism; Z79.01 Long term (current) use of anticoagulants
CPT/HCPCS: 36415; 71045; 74178; 80048; 80053; 81001; 82140; 82271; 82962; 85014; 85018; 85025; 85610; 85730; 86850; 86900; 86901; 86920; 93925; 93970; 94640; 94760; 99406; G0378; A9270-GY; C9113; J1885; J1940; J1956; J2270; J2704; J3430; J7030; J7040; P9016; P9017; Q9967

== ENCOUNTER 2018-08-17 12:45 | Emergency (ER) | payer OTHER ==
--- NOTE | 2018-08-17 12:56 | Emergency Department Report ---
Chief Complaint: Abdominal Pain Stated Complaint: SEVERE STOMACH PAIN Time Seen by Provider: 08/17/18 12:53 - HPI History of Present Illness: This is a 82 y.o. F. that presents to the ER with abdominal pain since last night. History of peptic ulcers, arthritis, sciatica, neuropathy, and DM. Current smoker 2-3 cigarettes per day. Denies n/v/d Admitted on ER visit 07/20/18 for cc of tarry stools. EGD 07/21/18 that showed 3 white-based antral ulcers with surrounding edema and no bleeding. - Exam Vital Signs: Vital Signs 08/17/18 12:54 Temperature 99.1 F Pulse Rate 120 H Respiratory 20 Rate Blood Pressure 100/75 O2 Sat by Pulse 98 Oximetry MSE screening note: Focused history and physical exam performed. Due to findings the following was ordered: This initial assessment/diagnostic orders/clinical plan/treatment(s) is/are subject to change based on patient's health status, clinical progression and re- assessment by fellow clinical providers in the ED. Further treatment and workup at subsequent clinical providers discretion. Patient/guardians urged not to elope from the ED as their condition may be serious if not clinically assessed and managed. Initial orders include: 1- Patient sent to [facility] for further evaluation and treatment 2- Labs ED Disposition for MSE Condition: Stable Instructions: Abdominal Pain (ED)
[2018-08-17 13:43] LABS: Basophils # (Auto) 0.1 K/mm3 (0.0-0.1); Basophils % (Auto) 0.4 % (0.0-1.8); Eosinophils # (Auto) 0.4 K/mm3 (0.0-0.4); Eosinophils % (Auto) 2.3 % (0.0-4.3); Hematocrit 37.5 % (30.3-42.9); Hemoglobin 11.9 gm/dl (10.1-14.3); Lymphocytes # (Auto) 3.3 K/mm3 (1.2-5.4); Lymphocytes % (Auto) 20.4 % (13.4-35.0); Mean Corpuscular HGB Conc 32 % (30-34); Mean Corpuscular Volume 92 fl (79-97); Monocytes # (Auto) 0.9 K/mm3 (0.0-0.8); Monocytes % (Auto) 5.6 % (0.0-7.3); Platelet Count 261 K/mm3 (140-440); Red Blood Count 4.09 M/mm3 (3.65-5.03); Red Cell Distribution Width 18.9 % (13.2-15.2)
[2018-08-17 14:05] LABS: Alanine Aminotransferase 7 units/L (7-56); Albumin 3.9 g/dL (3.9-5); BUN/Creatinine Ratio 13; Blood Urea Nitrogen 9 mg/dL (7-17); Calcium 9.8 mg/dL (8.4-10.2); Hemolysis Index 14
--- NOTE | 2018-08-17 15:10 | XRay Report ---
AP ABDOMEN: HISTORY: Pain. The abdominal gas pattern is unremarkable. No masses or organomegaly is identified and there is no gross evidence of free air or fluid. No significant soft tissue calcifications are noted. Cholecystectomy changes are noted. IMPRESSION: Unremarkable abdomen.
[2018-08-17 15:19] LABS: Bacteria,Urine 1+ /HPF (Negative); Bilirubin,Urine NEG (Negative); Blood,Urine NEG (Negative); Color,Urine Amber (Yellow); Hyaline Casts,Urine 21 /LPF; Mucus,Urine 1+ /HPF
[2018-08-17] MEDS ORDERED: DILAUDID IV ONE (18:04)
[2018-08-17] MEDS ORDERED: PROTONIX IV ONE (18:04)
[2018-08-17] MEDS ORDERED: ZOFRAN IV ONE (18:05)
[2018-08-17] MEDS ORDERED: NACL 0.9% 500 ML 500 ML IV ONE (18:05)
[2018-08-17] MEDS ORDERED: ROCEPHIN/NS 1 GM/50 ML 1 GM/50 ML BAG IV ONE (19:41)
--- NOTE | 2018-08-17 20:04 | Cat Scan Report ---
PROCEDURE: CT ABDOMEN PELVIS W CON TECHNIQUE: Computerized axial tomography of the abdomen and pelvis was performed after the IV inject ion of iodinated nonionic contrast. CT DOSE LENGTH PRODUCT: 1396.1 mGycm HISTORY: upper abd pain, hx of ulcers COMPARISONS: CT scan abdomen and pelvis 07/20/2018 . FINDINGS: Lower Lung liang: Mild linear scarring seen in the lung bases. There also appears to be partial vis ualization of mild emphysematous changes in the lung bases. Upper Abdomen: Gallbladder is surgically absent. There is stable mild prominence of the biliary syst em status post cholecystectomy. This is unchanged. The liver is otherwise unremarkable. Pancreas and spleen as well as the adrenal glands show no abnormalities. The li of the antrum of the stomach ar e mildly prominent. I cannot exclude mild gastritis. The stomach is otherwise unremarkable. Kidneys, Ureters and Urinary bladder: Renal cortical cysts visualized bilaterally. The kidneys, uret ers and urinary bladder otherwise are unremarkable. Retroperitoneum: Atherosclerotic changes are seen in the abdominal aorta. No aneurysm is visualized. Nonspecific subcentimeter lymph nodes are seen in the retroperitoneum. No pathologically enlarged ly mph nodes are identified. Bowel: There is [id number] sigmoid diverticulosis without evidence of diverticulitis. There is minimal prominence of the li of the transverse colon, splenic flexure and descending colon. I can not exclude a mild nonspecific colitis. Bowel loops otherwise are unremarkable. There is a small amou nt of ascites collected in the left pericolonic gutter and also in the lower pelvis. No free air is s een. No evidence of bowel obstruction. The appendix is not visualized. Reproductive organs: Uterus is surgically absent. No abnormal adnexal masses are seen. Other: There is a geographic lesion in the superior medial aspect of the right femoral head. There is decreased density centrally no acute bone abnormalities are seen. With a sclerotic periphery. This m ay represent a large subchondral cyst of avascular necrosis. The findings are stable. Ringlike osteop hytic spur projects from the right and left femoral heads consistent with osteoarthritis. IMPRESSION: Colonic diverticulosis as described. Mild wall thickening seen in the colon as described suggesting nonspecific colitis. Small amount of a scites is visualized. Wall thickening appears to be visualized in the antrum of the stomach. Consider gastritis. The stomac h is otherwise unremarkable. Renal cortical cysts visualized bilaterally. Prior cholecystectomy. Prior hysterectomy. Geographic lesion visualized superior aspect right femoral head suggesting avascular necrosis or larg e subchondral cyst formation. Ringlike osteophytic spurs project from the right and left femoral heads consistent with osteoarthrit is. This document is electronically signed by Geovanni Cadena MD., Aug 17 2018 08:02:21 PM ET
--- NOTE | 2018-08-17 20:09 | Emergency Department Report ---
ED Abdominal Pain HPI - General Chief Complaint: Abdominal Pain Stated Complaint: SEVERE STOMACH PAIN Time Seen by Provider: 08/17/18 12:53 Source: patient Mode of arrival: Wheelchair Limitations: No Limitations - History of Present Illness Initial Comments: 82-year-old female with a past medical history of peptic ulcer disease, previous DVTs with previous anticoagulation, chronic pain secondary to arthritis and sciatica, asthma, diabetes, and COPD presents to the hospital complaints of epigastric abdominal pain since last night. Pain is constant, sharp, and worse with palpation. She denies nausea, vomiting, diarrhea, melena, or hematochezia. Patient was admitted here and of June until July 23 for anemia, dizziness, and black tarry stools while on Coumadin. Patient required blood transfusion during admission. Coumadin subsequently discontinued once repeat Doppler showed no signs of DVT. Patient EGD 07/21/18 that showed 3 white-based antral ulcers with surrounding edema and no stigmata of bleeding (no bx obtained given elevated INR). Patient was discharged to continue PPI once a day and avoid NSAIDs. Patient states she is currently taking a PPI once a day and only has a couple of tablets left. Patient takes hydrocodone chronically for arthritis-related pain. She states she only has a couple tablets left. He states that hydrocodone does not help pain and she has upcoming visit with pain management on August 23. PMD: [place]arte Severity scale (0 -10): 8 - Related Data Home Medications Medication Instructions Recorded Confirmed Last Taken Baclofen [Lioresal] 10 mg PO QID PRN 07/20/18 07/20/18 Unknown Beclomethasone Dipropionate [Qvar] 2 puff IH BID 07/20/18 07/20/18 Unknown Duloxetine HCl [Cymbalta] 60 mg PO QDAY 07/20/18 07/20/18 Unknown Gabapentin [Neurontin] 2 cap PO QAM&QHS 07/20/18 07/20/18 Unknown metFORMIN [Glucophage] 500 mg PO QDAY 07/20/18 07/20/18 Unknown Previous Rx's Medication Instructions Recorded Last Taken Type Arformoterol Nebu [Brovana Nebu] 15 mcg IH Q12HRT ml 07/23/18 Unknown Rx Budesonide [Pulmicort Respules] 0.5 mg IH Q12HRT nebu 07/23/18 Unknown Rx DULoxetine [Cymbalta] 60 mg PO QDAY capsule 07/23/18 Unknown Rx Ipratropium/Albuter (Nf) 1 puff IH QID #30 inha 07/23/18 Unknown Rx [Combivent Inhaler] Lisinopril [Zestril TAB] 20 mg PO QDAY #30 tablet 07/23/18 Unknown Rx Lisinopril/Hydrochlorothiazide 1 tab PO QDAY #30 tablet 07/23/18 Unknown Rx [Zestoretic 20-25 mg] Oxycodone HCl [oxyCODONE] 10 mg PO Q4-6H PRN #20 tablet 07/23/18 Unknown Rx hydroCHLOROthiazide [HCTZ] 25 mg PO QDAY tablet 07/23/18 Unknown Rx Nitrofurantoin [place]/M-Cryst 100 mg PO Q12HR #10 capsule 08/17/18 Unknown Rx [Macrobid CAP] Pantoprazole [Protonix] 40 mg PO QDAY #30 tablet 08/17/18 Unknown Rx Sucralfate [Carafate] 1 gm PO Q6HR #20 udc 08/17/18 Unknown Rx oxyCODONE /ACETAMINOPHEN [Percocet 1 tab PO Q6HR PRN #14 tablet 08/17/18 Unknown Rx 5/325] Allergies Allergy/AdvReac Type Severity Reaction Status Date / Time No Known Allergies Allergy Verified 08/17/18 12:49 ED Review of Systems ROS: Stated complaint: SEVERE STOMACH PAIN Other details as noted in HPI ED Past Medical Hx - Past Medical History Hx Heart Attack/AMI: No Hx Congestive Heart Failure: No Hx Diabetes: Yes Hx Deep Vein Thrombosis: Yes (rle) Hx Pulmonary Embolism: No Hx GERD: No Hx Liver Disease: No Hx Sickle Cell Disease: No Hx Arthritis: Yes Hx Headaches / Migraines: No Hx Asthma: Yes Hx COPD: Yes Hx Tuberculosis: No Hx HIV: Yes Additional medical history: DVTs. sciatica - Surgical History Past Surgical History?: No Hx Coronary Stent: No Hx Open Heart Surgery: No Hx Pacemaker: No Hx Internal Defibrillator: No Hx Cholecystectomy: No Hx Appendectomy: No Hx Breast Surgery: No - Social History Smoking Status: Current Every Day Smoker Substance Use Type: None - Medications Home Medications: Home Medications Medication Instructions Recorded Confirmed Last Taken Type Baclofen [Lioresal] 10 mg PO QID PRN 07/20/18 07/20/18 Unknown History Beclomethasone Dipropionate [Qvar] 2 puff IH BID 07/20/18 07/20/18 Unknown History Duloxetine HCl [Cymbalta] 60 mg PO QDAY 07/20/18 07/20/18 Unknown History Gabapentin [Neurontin] 2 cap PO QAM&QHS 07/20/18 07/20/18 Unknown History metFORMIN [Glucophage] 500 mg PO QDAY 07/20/18 07/20/18 Unknown History Arformoterol Nebu [Brovana Nebu] 15 mcg IH Q12HRT ml 07/23/18 Unknown Rx Budesonide [Pulmicort Respules] 0.5 mg IH Q12HRT nebu 07/23/18 Unknown Rx DULoxetine [Cymbalta] 60 mg PO QDAY capsule 07/23/18 Unknown Rx Ipratropium/Albuter (Nf) 1 puff IH QID #30 inha 07/23/18 Unknown Rx [Combivent Inhaler] Lisinopril [Zestril TAB] 20 mg PO QDAY #30 tablet 07/23/18 Unknown Rx Lisinopril/Hydrochlorothiazide 1 tab PO QDAY #30 tablet 07/23/18 Unknown Rx [Zestoretic 20-25 mg] Oxycodone HCl [oxyCODONE] 10 mg PO Q4-6H PRN #20 tablet 07/23/18 Unknown Rx hydroCHLOROthiazide [HCTZ] 25 mg PO QDAY tablet 07/23/18 Unknown Rx Nitrofurantoin [place]/M-Cryst 100 mg PO Q12HR #10 capsule 08/17/18 Unknown Rx [Macrobid CAP] Pantoprazole [Protonix] 40 mg PO QDAY #30 tablet 08/17/18 Unknown Rx Sucralfate [Carafate] 1 gm PO Q6HR #20 udc 08/17/18 Unknown Rx oxyCODONE /ACETAMINOPHEN [Percocet 1 tab PO Q6HR PRN #14 tablet 08/17/18 Unknown Rx 5/325] ED Physical Exam - General Limitations: No Limitations - Other Other exam information: General: No limitations, patient is alert in no acute distress Head exam: Atraumatic, normocephalic Eyes exam: Normal appearance, nonicteric sclerae ENT: Moist mucous membrane, normal oropharynx Neck exam: Normal inspection, full range of motion, no meningismus nontender Respiratory exam: Clear to auscultation bilateral, no wheezes, rales, crackles Cardiovascular: Normal rate and rhythm, normal heart sounds Abdomen: Soft, nondistended, mid and epigastric tenderness, with normal bowel sounds, no rebound, or guarding Rectal: Guaiac negative brown stool without melena or hematochezia Extremity: Full range of motion normal inspection no deformity Back: Normal Inspection, full range of motion, no tenderness Neurologic: Alert, oriented x3, cranial nerves intact, no motor or sensory deficit Psychiatric: normal affect, normal mood Skin: Warm, dry, intact ED Course Vital Signs 08/17/18 08/17/18 08/17/18 12:54 17:37 17:45 Temperature 99.1 F Pulse Rate 120 H 87 Respiratory 20 17 Rate Blood Pressure 100/75 94/70 O2 Sat by Pulse 98 88 98 Oximetry 08/17/18 08/17/18 08/17/18 17:59 18:15 18:30 Temperature 98.6 F Pulse Rate 89 93 H Respiratory 19 12 Rate Blood Pressure 107/68 105/63 O2 Sat by Pulse 91 Oximetry 08/17/18 18:45 Temperature Pulse Rate 77 Respiratory 8 L Rate Blood Pressure 119/76 O2 Sat by Pulse 94 Oximetry - Consultations Consultation #1: 08/17/18 20:29 case d/w Dr Sterling with [facility] f/u will be arranged. Pt will provided a copy of her recent workup to take to her f/u visit. ED Medical Decision Making - Lab Data Result diagrams: 08/17/18 13:17 08/17/18 13:17 Lab Results 08/17/18 08/17/18 08/17/18 Range/Units 13:17 13:17 14:46 WBC 16.1 H (4.5-11.0) K/mm3 RBC 4.09 (3.65-5.03) M/mm3 Hgb 11.9 (10.1-14.3) gm/dl Hct 37.5 (30.3-42.9) % MCV 92 (79-97) fl MCH 29 (28-32) pg MCHC 32 (30-34) % RDW 18.9 H (13.2-15.2) % Plt Count 261 (140-440) K/mm3 Lymph % (Auto) 20.4 (13.4-35.0) % [place] % (Auto) 5.6 (0.0-7.3) % Eos % (Auto) 2.3 (0.0-4.3) % Baso % (Auto) 0.4 (0.0-1.8) % Lymph # 3.3 (1.2-5.4) K/mm3 [place] # 0.9 H (0.0-0.8) K/mm3 Eos # 0.4 (0.0-0.4) K/mm3 Baso # 0.1 (0.0-0.1) K/mm3 Seg Neutrophils % 71.3 H (40.0-70.0) % Seg Neutrophils # 11.5 H (1.8-7.7) K/mm3 Sodium 146 H (137-145) mmol/L Potassium 4.3 (3.6-5.0) mmol/L Chloride 102.7 (98-107) mmol/L Carbon Dioxide 29 (22-30) mmol/L Anion Gap 19 mmol/L BUN 9 (7-17) mg/dL Creatinine 0.7 (0.7-1.2) mg/dL Estimated GFR > 60 ml/min BUN/Creatinine Ratio 13 % Glucose 148 H (65-100) mg/dL Calcium 9.8 (8.4-10.2) mg/dL Total Bilirubin 0.40 (0.1-1.2) mg/dL AST 14 (5-40) units/L ALT 7 (7-56) units/L Alkaline Phosphatase 69 (35-129) units/L Total Protein 7.3 (6.3-8.2) g/dL Albumin 3.9 (3.9-5) g/dL Albumin/Globulin Ratio 1.1 % Lipase 15 (13-60) units/L Urine Color Chanelle (Yellow) Urine Turbidity Slightly-cloudy (Clear) Urine pH 5.0 (5.0-7.0) Ur Specific [place] 1.020 (1.003-1.030) Urine Protein 30 mg/dl (Negative) mg/dL Urine Glucose (UA) Neg (Negative) mg/dL Urine Ketones Neg (Negative) mg/dL Urine Blood Neg (Negative) Urine Nitrite Neg (Negative) Urine Bilirubin Neg (Negative) Urine Urobilinogen 2.0 (<2.0) mg/dL Ur Leukocyte Esterase Neg (Negative) Urine WBC (Auto) 7.0 H (0.0-6.0) /HPF Urine RBC (Auto) 3.0 (0.0-6.0) /HPF U Epithel Cells (Auto) 3.0 (0-13.0) /HPF Urine Bacteria (Auto) 1+ (Negative) /HPF Hyaline Casts 21 /LPF Urine Mucus 1+ /HPF - Radiology Data Radiology results: report reviewed PROCEDURE: CT ABDOMEN PELVIS W CON TECHNIQUE: Computerized axial tomography of the abdomen and pelvis was performed after the IV injection of iodinated nonionic contrast. CT DOSE LENGTH PRODUCT: 1396.1 mGycm HISTORY: upper abd pain, hx of ulcers COMPARISONS: CT scan abdomen and pelvis 07/20/2018 . FINDINGS: Lower Lung liang: Mild linear scarring seen in the lung bases. There also appears to be partial visualization of mild emphysematous changes in the lung bases. Upper Abdomen: Gallbladder is surgically absent. There is stable mild prominence of the biliary system status post cholecystectomy. This is unchanged. The liver is otherwise unremarkable. Pancreas and spleen as well as the adrenal glands show no abnormalities. The li of the antrum of the stomach are mildly prominent. I cannot exclude mild gastritis. The stomach is otherwise unremarkable. Kidneys, Ureters and Urinary bladder: Renal cortical cysts visualized bilaterally. The kidneys, ureters and urinary bladder otherwise are unremarkable. Retroperitoneum: Atherosclerotic changes are seen in the abdominal aorta. No aneurysm is visualized. Nonspecific subcentimeter lymph nodes are seen in the retroperitoneum. No path ologically enlarged lymph nodes are identified. Bowel: There is [id number] sigmoid diverticulosis without evidence of diverticulitis. There is minimal prominence of the li of the transverse colon, splenic flexure and descending colon. I cannot exclude a mild nonspecific colitis. Bowel loops otherwise are unremarkable. There is a small amount of ascites collected in the left pericolonic gutter and also in the lower pelvis. No free air is seen. No evidence of bowel obstruction. The appendix is not visualized. Reproductive organs: Uterus is surgically absent. No abnormal adnexal masses are seen. Other: There is a geographic lesion in the superior medial aspect of the right femoral head. There is decreased density centrally no acute bone abnormalities are seen. With a sclerotic periphery. This may represent a large subchondral cyst of avascular necrosis. The findings are stable. Ringlike osteophytic spur projects from the right and left femoral heads consistent with osteoarthritis. IMPRESSION: Colonic diverticulosis as described. Mild wall thickening seen in the colon as described suggesting nonspecific colitis. Small amount of ascites is visualized. Wall thickening appears to be visualized in the antrum of the stomach. Consider gastritis. The stomach is otherwise unremarkable. Renal cortical cysts visualized bilaterally. Prior cholecystectomy. Prior hysterectomy. Geographic lesion visualized superior aspect right femoral head suggesting avas cular necrosis or large subchondral cyst formation. Ringlike osteophytic spurs project from the right and left femoral heads consistent with osteoarthritis. AP ABDOMEN: HISTORY: Pain. The abdominal gas pattern is unremarkable. No masses or organomegaly is identified and there is no gross evidence of free air or fluid. No significant soft tissue calcifications are noted. Cholecystectomy changes are noted. IMPRESSION: Unremarkable abdomen. - Medical Decision Making sx improved in ed hx of pud, PPI, carafate to be added no signs or bleeding, surgical or infectious emergency mild wbc in urine will be tx with macrobid copy of recent workup provided (recent d/c summary, ct from today, labs from today, and egd results) - Differential Diagnosis perforated ulcer, gastritis, PUD, chronic pain, pancreatitis Critical Care Time: No Critical care attestation.: If time is entered above; I have spent that time in minutes in the direct care of this critically ill patient, excluding procedure time. ED Disposition Clinical Impression: Epigastric pain, PUD (peptic ulcer disease), Chronic pain, UTI (urinary tract infection) Disposition: - TO HOME OR SELFCARE Is pt being admited?: No Condition: Stable Instructions: Urinary Tract Infection in Women (ED), Peptic Ulcer (ED), Chronic Pain (ED) Additional Instructions: Take the medication as prescribed. Follow-up with your [place] physicians.. Return if symptoms worsen as indicated by your discharge instructions. Take the copy of the results you doctor for further treatment Prescriptions: Sucralfate [Carafate] 1 gm PO Q6HR #20 udc Nitrofurantoin [place]/M-Cryst [Macrobid CAP] 100 mg PO Q12HR #10 capsule oxyCODONE /ACETAMINOPHEN [Percocet 5/325] 1 tab PO Q6HR PRN #14 tablet PRN Reason: Pain Pantoprazole [Protonix] 40 mg PO QDAY #30 tablet Referrals: ANNY YOON MD [Primary Care Provider] - 2-3 Days MARIAMA rodarte MD [Other] - 3-5 Days Time of Disposition: 20:43
[2018-08-17] MEDS ORDERED: MACROBID PO ONE (20:18)
[2018-08-17 20:48] VITALS: BP 104/60
== END 2018-08-17 21:13 | disposition home or self-care (01) ==
LOC: ED 12:45
DX: K27.9 Peptic ulcer, site unspecified, unspecified as acute or chronic, without hemorrhage or perforation (principal); N30.00 Acute cystitis without hematuria; N39.0 Urinary tract infection, site not specified; E11.9 Type 2 diabetes mellitus without complications; M19.90 Unspecified osteoarthritis, unspecified site; J44.9 Chronic obstructive pulmonary disease, unspecified; F17.200 Nicotine dependence, unspecified, uncomplicated; Z86.718 Personal history of other venous thrombosis and embolism
CPT/HCPCS: 36415; 74018; 74177; 80053; 81001; 82271; 83690; 85025; 96374; 96375; 99284; C9113; J1170; J2405; J7040; Q9967

== ENCOUNTER 2021-11-09 09:30 | Emergency (ER) | payer MEDICARE, OTHER ==
[2021-11-09 11:29] LABS: Basophils # (Auto) 0.1 K/mm3 (0.0-0.1); Basophils % (Auto) 0.6 % (0.0-1.8); Eosinophils # (Auto) 0.1 K/mm3 (0.0-0.4); Eosinophils % (Auto) 0.7 % (0.0-4.3); Hematocrit 41.1 % (30.3-42.9); Hemoglobin 13.4 gm/dl (10.1-14.3); Lymphocytes # (Auto) 2.3 K/mm3 (1.2-5.4); Lymphocytes % (Auto) 24.3 % (13.4-35.0); Mean Corpuscular HGB Conc 33 % (30-34); Mean Corpuscular Volume 95 fl (79-97); Monocytes # (Auto) 0.8 K/mm3 (0.0-0.8); Monocytes % (Auto) 8.1 % (0.0-7.3); Platelet Count 219 K/mm3 (140-440); Red Blood Count 4.33 M/mm3 (3.65-5.03)
[2021-11-09 11:35] LABS: Blood Urea Nitrogen 8 mg/dL (7-17); Calcium 9.5 mg/dL (8.4-10.2); Hemolysis Index 2
[2021-11-09 11:38] LABS: BUN/Creatinine Ratio 13
--- NOTE | 2021-11-09 11:58 | XRay Report ---
CHEST 1 VIEW 11/09/2021 10:34 AM INDICATION / CLINICAL INFORMATION: sob. COMPARISON: 07/20/2018 FINDINGS: SUPPORT DEVICES: None. HEART / MEDIASTINUM: No significant abnormality. LUNGS / PLEURA: Lungs are hyperexpanded with streaky opacities in both lung bases, likely atelectasis . Mild interstitial prominence. No pneumothorax. ADDITIONAL FINDINGS: No significant additional findings. IMPRESSION: 1. Mild interstitial prominence, possibly related to mild pulmonary edema versus interstitial lung di sease. No focal consolidation. Signer Name: Jon Ryan MD Signed: 11/09/2021 11:54 AM Workstation Name: [id number]
[2021-11-09 12:28] LABS: Alanine Aminotransferase 10 units/L (7-56); Albumin 3.6 g/dL (3.9-5)
[2021-11-09] MEDS ORDERED: fentaNYL 100 MCG/2 ML INJ IV ONE (12:42)
[2021-11-09] MEDS ORDERED: SODIUM CHLORIDE 0.9% 1000 ML 1,000 ML IV ONE (12:42)
--- NOTE | 2021-11-09 12:50 | Emergency Department Report ---
ED General Adult HPI - General Chief complaint: Pain General Stated complaint: ZAYRA/NECK PAIN Time Seen by Provider: 11/09/21 12:00 Source: patient, EMS Mode of arrival: Stretcher Limitations: Physical Limitation - History of Present Illness Initial comments: 86 yo F with chronic arthritis currently on tramadol who now present with generalized joint pain that worsening the last 3-4 days. No fever or chills reported. Pt reports that her strong pain medications such as oxycodone and percocet was discontinue by her PCP about a year ago because she has been on them for too long. No recent fall or trauma reported. Patient has been told that she was walking on bone on bone regarding regarding knees that need a knee replacement in but could not have surgery because of her age. No other modifying or associated factors reported. Severity scale (0 -10): 10 - Related Data Home Medications Medication Instructions Recorded Confirmed Last Taken Baclofen [Lioresal] 10 mg PO QID PRN 07/20/18 07/20/18 Unknown Beclomethasone Dipropionate [Qvar] 2 puff IH BID 07/20/18 07/20/18 Unknown Duloxetine HCl [Cymbalta] 60 mg PO QDAY 07/20/18 07/20/18 Unknown metFORMIN [Glucophage] 500 mg PO QDAY 07/20/18 07/20/18 Unknown Previous Rx's Medication Instructions Recorded Last Taken Type Arformoterol Nebu [Brovana Nebu] 15 mcg IH Q12HRT ml 07/23/18 Unknown Rx Budesonide [Pulmicort Respules] 0.5 mg IH Q12HRT nebu 07/23/18 Unknown Rx DULoxetine [Cymbalta] 60 mg PO QDAY capsule 07/23/18 Unknown Rx Ipratropium/Albuter (Nf) 1 puff IH QID #30 inha 07/23/18 Unknown Rx [Combivent Inhaler] Lisinopril/Hydrochlorothiazide 1 tab PO QDAY #30 tablet 07/23/18 Unknown Rx [Zestoretic 20-25 mg] Oxycodone HCl [oxyCODONE] 10 mg PO Q4-6H PRN #20 tablet 07/23/18 Unknown Rx hydroCHLOROthiazide [HCTZ] 25 mg PO QDAY tablet 07/23/18 Unknown Rx lisinopriL [Zestril TAB] 20 mg PO QDAY #30 tablet 07/23/18 Unknown Rx Nitrofurantoin [place]/M-Cryst 100 mg PO Q12HR #10 capsule 08/17/18 Unknown Rx [Macrobid CAP] Pantoprazole [Protonix] 40 mg PO QDAY #30 tablet 08/17/18 Unknown Rx Sucralfate [Carafate] 1 gm PO Q6HR #20 udc 08/17/18 Unknown Rx oxyCODONE /ACETAMINOPHEN [Percocet 1 tab PO Q6HR PRN #14 tablet 08/17/18 Unknown Rx 5/325] Duloxetine HCl [Cymbalta] 60 mg PO DAILY 30 Days #30 cap NS 11/09/21 Unknown Rx Gabapentin 2 cap PO QAM&QHS 30 Days #60 cap NS 11/09/21 Unknown Rx Allergies Allergy/AdvReac Type Severity Reaction Status Date / Time No Known Allergies Allergy Verified 08/17/18 12:49 ED Review of Systems ROS: Stated complaint: ZAYRA/NECK PAIN Other details as noted in HPI Comment: All other systems reviewed and negative Musculoskeletal: joint swelling, arthralgia, myalgia ED Past Medical Hx - Past Medical History Hx Heart Attack/AMI: No Hx Congestive Heart Failure: No Hx Diabetes: Yes Hx Deep Vein Thrombosis: Yes (rle) Hx Pulmonary Embolism: No Hx GERD: No Hx Liver Disease: No Hx Sickle Cell Disease: No Hx Arthritis: Yes Hx Headaches / Migraines: No Hx Asthma: Yes Hx COPD: Yes Hx Tuberculosis: No Hx HIV: Yes Additional medical history: DVTs. sciatica - Surgical History Hx Coronary Stent: No Hx Open Heart Surgery: No Hx Pacemaker: No Hx Internal Defibrillator: No Hx Cholecystectomy: No Hx Appendectomy: No Hx Breast Surgery: No - Social History Smoking Status: Current Some Day Smoker Substance Use Type: None - Medications Home Medications: Home Medications Medication Instructions Recorded Confirmed Last Taken Type Baclofen [Lioresal] 10 mg PO QID PRN 07/20/18 07/20/18 Unknown History Beclomethasone Dipropionate [Qvar] 2 puff IH BID 07/20/18 07/20/18 Unknown History Duloxetine HCl [Cymbalta] 60 mg PO QDAY 07/20/18 07/20/18 Unknown History metFORMIN [Glucophage] 500 mg PO QDAY 07/20/18 07/20/18 Unknown History Arformoterol Nebu [Brovana Nebu] 15 mcg IH Q12HRT ml 07/23/18 Unknown Rx Budesonide [Pulmicort Respules] 0.5 mg IH Q12HRT nebu 07/23/18 Unknown Rx DULoxetine [Cymbalta] 60 mg PO QDAY capsule 07/23/18 Unknown Rx Ipratropium/Albuter (Nf) 1 puff IH QID #30 inha 07/23/18 Unknown Rx [Combivent Inhaler] Lisinopril/Hydrochlorothiazide 1 tab PO QDAY #30 tablet 07/23/18 Unknown Rx [Zestoretic 20-25 mg] Oxycodone HCl [oxyCODONE] 10 mg PO Q4-6H PRN #20 tablet 07/23/18 Unknown Rx hydroCHLOROthiazide [HCTZ] 25 mg PO QDAY tablet 07/23/18 Unknown Rx lisinopriL [Zestril TAB] 20 mg PO QDAY #30 tablet 07/23/18 Unknown Rx Nitrofurantoin [place]/M-Cryst 100 mg PO Q12HR #10 capsule 08/17/18 Unknown Rx [Macrobid CAP] Pantoprazole [Protonix] 40 mg PO QDAY #30 tablet 08/17/18 Unknown Rx Sucralfate [Carafate] 1 gm PO Q6HR #20 udc 08/17/18 Unknown Rx oxyCODONE /ACETAMINOPHEN [Percocet 1 tab PO Q6HR PRN #14 tablet 08/17/18 Unknown Rx 5/325] Duloxetine HCl [Cymbalta] 60 mg PO DAILY 30 Days #30 cap NS 11/09/21 Unknown Rx Gabapentin 2 cap PO QAM&QHS 30 Days #60 cap NS 11/09/21 Unknown Rx ED Physical Exam - General Limitations: Physical Limitation General appearance: alert, in no apparent distress - Head Head exam: Present: normal inspection - Eye Eye exam: Present: normal appearance Pupils: Present: normal accommodation - ENT ENT exam: Present: normal exam, normal orophraynx, mucous membranes dry - Neck Neck exam: Present: normal inspection, tenderness (posterior midline tenderness), full ROM. Absent: meningismus, lymphadenopathy - Respiratory Respiratory exam: Present: normal lung sounds bilaterally, chest wall tenderness. Absent: respiratory distress, accessory muscle use - Cardiovascular Cardiovascular Exam: Present: regular rate, normal rhythm, normal heart sounds - GI/Abdominal GI/Abdominal exam: Present: soft, normal bowel sounds. Absent: distended, tenderness - Extremities Exam Extremities exam: Present: tenderness (bilateral knee swellings with tenderness and with no erythema ), normal capillary refill - Back Exam Back exam: Absent: tenderness, CVA tenderness (R), CVA tenderness (L) - Neurological Exam Neurological exam: Present: alert, oriented X3 - Psychiatric Psychiatric exam: Present: normal affect, normal mood - Skin Skin exam: Present: warm, normal color ED Course Vital Signs 11/09/21 11/09/21 11/09/21 09:34 09:56 14:51 Temperature 98.6 F 98.8 F 98.7 F Pulse Rate 98 H 97 H 79 Respiratory 22 24 20 Rate Blood Pressure 125/77 Blood Pressure 124/80 125/77 126/79 [Left] O2 Sat by Pulse 100 97 97 Oximetry 11/09/21 11/09/21 16:16 18:13 Temperature 98.7 F Pulse Rate 86 82 Respiratory 20 20 Rate Blood Pressure Blood Pressure 134/78 141/86 [Left] O2 Sat by Pulse 97 97 Oximetry ED Medical Decision Making - Lab Data Result diagrams: 11/09/21 11:02 11/09/21 11:02 - Medical Decision Making here with generalized muscle and joint pain -- noted with bilateral knee swellings with tenderness and with no erythema -- will go ahead and order CBC, CMP, UA -- and CK -- for any infectious process or any electrolyte abnormality In the meantime we will go ahead and give 1 L of IV fluids normal saline for hydration while waiting for the above labs Given fentanyl and haldol with some improvement in symptoms-- will discharge patient home on Duloxetine with close follow up with her doctor in the next 1-2 weeks for progress Lab reviewed and noted with mild potassium -- will also d/c home on 10 mEq x few days Critical care attestation.: If time is entered above; I have spent that time in minutes in the direct care o f this critically ill patient, excluding procedure time. ED Disposition Clinical Impression: Generalized muscle ache, Generalized arthritis, Hypokalemia Disposition: HOME / SELF CARE / HOMELESS Is pt being admited?: No Does the pt Need Aspirin: No Condition: Stable Instructions: Preventing Osteoarthritis, Adult, Osteoarthritis, Arthritis, [id number], Potassium Content of Foods Additional Instructions: Take your new medication to help your joints discomfort Call and follow-up with your primary doctor in the next 1 to 2 weeks for progress You can also apply topical analgesic like Bengay to those joints to help with the symptoms Please do not hesitate to call or return to emergency if your symptoms worsen Increase your potassium content food to help your hypokalemia Prescriptions: Duloxetine HCl [Cymbalta] 60 mg PO DAILY 30 Days #30 cap NS Gabapentin 2 cap PO QAM&QHS 30 Days #60 cap NS Referrals: SKYLA CHAUDHARI [Other] - 3-5 Days Time of Disposition: 19:43
[2021-11-09 14:04] LABS: Free T4 (Free Thyroxine) 1.03 ng/dL (0.76-1.46)
[2021-11-09] MEDS ORDERED: HALOPERIDOL LACTATE 5 MG/1 ML INJ IM ONE (14:36)
[2021-11-09 18:14] VITALS: BP 141/86
--- NOTE | 2021-11-12 13:47 | Electrocardiograph Report ---
[facility] Test Date: 2021-11-09 Test Time: 12:12:54 Pat Name: MISHA SANCHEZ Department: Room: Gender: F [employer]wall [employer]man: [phone] : [phone] Requested By: JOSE ESPARZA Order Number: [id number] Reading MD: Bryan Blanchard Measurements Intervals [place] Rate: 98 P: 81 CO: 182 QRS: -59 QRSD: 79 T: 70 QT: 380 QTc: 484 Interpretive Statements Sinus rhythm Left axis deviation Anterior infarct, old Low voltage QRS No previous ECG available for comparison Electronically Signed On 11-12-2021 13:47:25 EDT by Bryan Blanchard
== END 2021-11-09 20:09 | disposition home or self-care (01) ==
LOC: ED 09:30
DX: M79.10 Myalgia, unspecified site (principal); M19.90 Unspecified osteoarthritis, unspecified site; E87.6 Hypokalemia; E11.9 Type 2 diabetes mellitus without complications; J45.909 Unspecified asthma, uncomplicated; Z86.718 Personal history of other venous thrombosis and embolism; Z21 Asymptomatic human immunodeficiency virus [HIV] infection status; F17.200 Nicotine dependence, unspecified, uncomplicated; Z79.899 Other long term (current) drug therapy
CPT/HCPCS: 36415; 71045; 80053; 82550; 83880; 84439; 84443; 85025; 93005; 96361; 96372; 96374; 99284; J1630; J3010; J7030